=== PATIENT | female | born 1980 | race Caucasian/White ===

== ENCOUNTER 2016-10-05 22:53 | Emergency (ER) | payer BC ==
[~2016-10-05] VITALS: Ht 157.5 cm; Wt 87.0 kg
[~2016-10-05 22:53] MED LIST: ALBU1AER INH; BENZ100 PO
[2016-10-05 22:59] VITALS: BP 118/82; PULSE 97; RESP 16; TEMP 98.6; O2SAT 98
[2016-10-05] MEDS ORDERED: SODIUM CHLOR 0.9% 1000 ML INJ 1,000 ML IV SCH (23:26)
[2016-10-05] MEDS ORDERED: ONDANSETRON HCL 4 MG/2 ML VIAL IVP ONE (23:30)
[2016-10-05] MEDS ORDERED: FAMOTIDINE 20 MG/2 ML VIAL IV PUSH ONE (23:30)
--- NOTE | 2016-10-05 23:49 | PD ---
HPI Chief Complaint: GI Complaint Time Seen by Provider: 23:09 Travel History International Travel<30 days: No Contact w/Intl Traveler<30days: No Traveled to known affect area: No History of Present Illness HPI Patient is a 36-year-old female who comes in complaining of nausea and vomiting for the past week. She says she feels nauseous all the time and has been vomiting several times each day. She says she was able to eat some rice today as well as some broth, but eventually did vomit. She says she has some epigastric pain. She also has noticed some black stool. She says the stools formed, not diarrhea. She did have 2 kids at home that were sick earlier in the week, but they're symptoms only lasted a day. She denies fever or chills. She says her skin is very dry and she feels dehydrated. She says her urine feels very warm and has been dark, but she denies any dysuria. She says she has had both of her fallopian tubes removed due to ectopic pregnancies in the past and she does not think she could be . She has been taking Zofran without much help. PFSH Past Medical History Hx Anticoagulant Therapy: No Atrial Fibrillation: Yes (HX?) Blood Disorders: No Anxiety: Yes Depression: No Cancer: No Cardiovascular Problems: Yes (HX A FIB) Chemotherapy: No Cerebrovascular Accident: No Diabetes: No Diminished Hearing: No Endocrine: No Genitourinary: No Immune Disorder: No Musculoskeletal: No Neurologic: No Psychiatric: No Reproductive: Yes (INFERTILITY ISSUES) Respiratory: No Immunizations Current: Yes ?: Unknown : 5 Para: 2 Miscarriage: 2 : 1 Tubal Ligation: Yes Past Surgical History Section: Yes (X2) Genitourinary Surgery: Yes (REMOVED BILAT FALLOPIAN TUBES) Hysterectomy: No Other Surgery: Yes Social History Alcohol Use: Yes (3-4 drinks/wk) Tobacco Use: No Substance Use: No Allergies-Medications (Allergen,Severity, Reaction): Coded Allergies: Iodine (Verified Allergy, Severe, NAUSEA AND VOMITING, 11/16/15) Codeine (Verified Adverse Reaction, Intermediate, ITCHING, 11/16/15) Uncoded Allergies: SHELLFISH (Allergy, Severe, 11/15/05) Reported Meds & Prescriptions Reported Meds & Active Scripts Active Proair Hfa (Albuterol Sulfate) 8.5 Gm Aero 2 Puff INH Q4-6H * SHAKE WELL BEFORE USE * Tessalon Perles (Benzonatate) 100 Mg Cap 200 Mg PO Q8 PRN Review of Systems Except as stated in HPI: all other systems reviewed are Neg General / Constitutional: No: Fever, Chills HENT: No: Headaches, Lightheadedness Cardiovascular: No: Chest Pain or Discomfort Respiratory: No: Shortness of Breath Gastrointestinal: Positive: Nausea, Vomiting, No: Diarrhea Genitourinary: No: Dysuria Musculoskeletal: No: Weakness Skin: Positive Dryness, No Rash Neurologic: No: Weakness, Dizziness Physical Exam Narrative GENERAL: Awake and alert, in no acute distress. SKIN: Skin is very dry and flaky all over. No erythema or signs of infection. HEAD: Atraumatic. Normocephalic. EYES: Pupils equal and round. No scleral icterus. ENT: Mucous membranes pink and moist. NECK: Trachea midline. No JVD. CARDIOVASCULAR: Regular rate and rhythm. No murmur appreciated. RESPIRATORY: No accessory muscle use. Clear to auscultation. Breath sounds equal bilaterally. GASTROINTESTINAL: Abdomen soft, nondistended. Tenderness to palpation of the epigastric area. No rebound or guarding. MUSCULOSKELETAL: No obvious deformities. No clubbing. No cyanosis. No edema. NEUROLOGICAL: Awake and alert. No obvious cranial nerve deficits. Motor grossly within normal limits. Normal speech. PSYCHIATRIC: Appropriate mood and affect; insight and judgment normal. Data Data Last Documented VS Vital Signs Date Time Temp Pulse Resp B/P Pulse Ox O2 Delivery O2 Flow Rate FiO2 10/05/16 22:59 98.6 97 16 118/82 98 Orders Complete Blood Count With Diff (10/05/16 23:26) Basic Metabolic Panel (Bmp) (10/05/16 23:26) Hepatic Functional Panel (10/05/16 23:26) Lipase (10/05/16 23:26) Urinalysis - C+S If Indicated (10/05/16 23:26) Ed Urine Pregnancytest Poc (10/05/16 23:26) Ondansetron Inj (Zofran Inj) (10/05/16 23:30) Sodium Chlor 0.9% 1000 Ml Inj (Ns 1000 M (10/05/16 23:26) Famotidine Inj (Pepcid Inj) (10/05/16 23:30) [facility] Medical Decision Making Medical Screen Exam Complete: Yes Emergency Medical Condition: Yes Medical Record Reviewed: Yes Differential Diagnosis Gastritis versus gastroparesis versus gastroenteritis versus pancreatitis versus colitis Narrative Course Patient is a 36-year-old female comes in complaining of vomiting. Exam shows very dry skin, epigastric tenderness on palpation. IV established, labs sent. Patient given IV famotidine, Zofran, IV fluids. Patient signed out to Dr. Augustin to follow up labs and disposition appropriately. [facility] Point of Care Internal Pos. & Neg. Controls: Passed Fecal Specimen Occult Blood: Negative Nory Epps MD Oct 05, 2016 23:49
[2016-10-06] MEDS ORDERED: NO MEDS (00:22)
[2016-10-06 00:23] LABS: AUTOMATED NEUTROPHIL # 2.4 TH/MM3 (1.8-7.7); BASOPHIL % 0.7 % (0.0-2.0); EOSINOPHIL # 0.2 TH/MM3 (0-0.4); EOSINOPHIL % 3.3 % (0.0-4.0); HEMATOCRIT 37.1 % (35.0-46.0); HEMO FLAGS DIFF FINAL; LYMPH % 30.1 % (9.0-44.0); LYMPHOCYTE # 1.4 TH/MM3 (1.0-4.8); MEAN CELL VOLUME 94.4 FL (80.0-100.0); MEAN CORPUSCULAR HEMOGLOBIN 32.1 PG (27.0-34.0); MONO % 12.3 % (0.0-8.0); NEUT % 53.6 % (16.0-70.0); PLATELET COUNT 186 TH/MM3 (150-450); RED BLOOD COUNT 3.93 MIL/MM3 (4.00-5.30); RED CELL DISTRIBUTION WIDTH 12.3 % (11.6-17.2); WHITE BLOOD COUNT 4.6 TH/MM3 (4.0-11.0)
--- NOTE | 2016-10-06 00:23 | PD ---
Physical Exam Date Seen by Provider: Oct 06, 2016 Time Seen by Provider: 00:22 Narrative Accepted in transfer of care from Dr. Epps GENERAL: Well-developed well-nourished female in no acute distress no respiratory distress GASTROINTESTINAL: Abdomen soft, non-tender, nondistended. . Data Data Last Documented VS Vital Signs Date Time Temp Pulse Resp B/P Pulse Ox O2 Delivery O2 Flow Rate FiO2 10/05/16 22:59 98.6 97 16 118/82 98 Orders Complete Blood Count With Diff (10/05/16 23:26) Basic Metabolic Panel (Bmp) (10/05/16 23:26) Hepatic Functional Panel (10/05/16 23:26) Lipase (10/05/16 23:26) Urinalysis - C+S If Indicated (10/05/16 23:26) Ed Urine Pregnancytest Poc (10/05/16 23:26) Ondansetron Inj (Zofran Inj) (10/05/16 23:30) Sodium Chlor 0.9% 1000 Ml Inj (Ns 1000 M (10/05/16 23:26) Famotidine Inj (Pepcid Inj) (10/05/16 23:30) Bedside Glucose YOSEPH.AC&HS (10/05/16 23:49) Urine Culture (10/06/16 00:30) Promethazine Inj (Phenergan Inj) (10/06/16 01:30) Sodium Chlor 0.9% 1000 Ml Inj (Ns 1000 M (10/06/16 01:30) Ceftriaxone Inj (Rocephin Inj) (10/06/16 01:30) Ct Abd/Pel W/O Iv Contrast (10/06/16 ) Labs Laboratory Tests Test 10/06/16 10/06/16 00:00 00:30 White Blood Count 4.6 TH/MM3 Red Blood Count 3.93 MIL/MM3 Hemoglobin 12.6 GM/DL Hematocrit 37.1 % Mean Corpuscular Volume 94.4 FL Mean Corpuscular Hemoglobin 32.1 PG Mean Corpuscular Hemoglobin 34.0 % Concent Red Cell Distribution Width 12.3 % Platelet Count 186 TH/MM3 Mean Platelet Volume 8.0 FL Neutrophils (%) (Auto) 53.6 % Lymphocytes (%) (Auto) 30.1 % Monocytes (%) (Auto) 12.3 % Eosinophils (%) (Auto) 3.3 % Basophils (%) (Auto) 0.7 % Neutrophils # (Auto) 2.4 TH/MM3 Lymphocytes # (Auto) 1.4 TH/MM3 Monocytes # (Auto) 0.6 TH/MM3 Eosinophils # (Auto) 0.2 TH/MM3 Basophils # (Auto) 0.0 TH/MM3 CBC Comment DIFF FINAL Differential Comment Sodium Level 143 MEQ/L Potassium Level 3.6 MEQ/L Chloride Level 109 MEQ/L Carbon Dioxide Level 26.4 MEQ/L Anion Gap 8 MEQ/L Blood Urea Nitrogen 11 MG/DL Creatinine 0.68 MG/DL Estimat Glomerular Filtration 98 ML/MIN Rate Random Glucose 113 MG/DL Calcium Level 8.1 MG/DL Total Bilirubin 1.3 MG/DL Direct Bilirubin 0.2 MG/DL Indirect Bilirubin 1.1 MG/DL Aspartate Amino Transf 13 U/L (AST/SGOT) Alanine Aminotransferase 18 U/L (ALT/SGPT) Alkaline Phosphatase 63 U/L Total Protein 6.5 GM/DL Albumin 3.3 GM/DL Lipase 99 U/L Urine Color EULOGIO Urine Turbidity CLEAR Urine pH 6.0 Urine Specific Chandler 1.033 Urine Protein TRACE mg/dL Urine Glucose (UA) NEG mg/dL Urine Ketones NEG mg/dL Urine Occult Blood NEG Urine Nitrite NEG Urine Bilirubin NEG Urine Leukocyte Esterase TRACE Urine RBC 0-3 /hpf Urine WBC 6-8 /hpf Urine Squamous Epithelial > 8 /hpf Cells Urine Bacteria MOD /hpf Microscopic Urinalysis Comment CULTURE INDICATED MDM Medical Record Reviewed: Yes Supervised Visit with SUZETTE: No Interpretation(s) CBC & BMP Diagram 10/06/16 00:00 Last Impressions Abdomen/Pelvis CT 10/06/16 0000 Signed Impressions: Service Date/Time: Thursday, October 06, 2016 02:32 - CONCLUSION: 1. No evidence of acute abdominal or pelvic process. No masses are identified. Gino Pompa MD Differential Diagnosis Please refer to Dr. Mcarthur's dictation Narrative Course Accepted in transfer of care from Dr. Mcarthur for follow-up of pending diagnostics response to medications/fluids and patient disposition Patient identified to have abnormal urinalysis with moderate bacteria culture indicated Patient given additional IV fluids and ongoing nausea vomiting and first dose of antibiotic Rocephin 1 g IV piggyback; [id number] hCG negative; patient continues to complain of abdominal pain CT noncontrast ordered CT abdomen and pelvis reveals no acute abnormality Patient stable for outpatient management Diagnosis Primary Impression: Vomiting Qualified Code: R11.2 - Non-intractable vomiting with nausea, unspecified vomiting type Additional Impression: UTI (urinary tract infection) Qualified Code: N30.00 - Acute cystitis without hematuria Referrals: Primary Care Physician call for appointment Patient Instructions: General Instructions Additional Instruction: Increase fluid hydration Follow-up with primary care provider Complete course of antibiotic as prescribed Return to the emergency department for any concerns or change in condition Use medication as prescribed as needed for nausea or vomiting take acetaminophen as needed for fever 100.4F or greater Med/Other Pt SpecificInfo: Prescription(s) given Scripts Sulfamethoxazole-Trimethoprim (Bactrim DS)800-160 Mg Tab1 Tab PO BID #14 TAB Ref 0 Prov:Griselda Augustin MD 10/06/16 Promethazine Supp (Phenergan Supp)25 Mg Supp25 Mg RECTAL Q6H PRN (NAUSEA OR VOMITING) #6 SUPP Ref 0 Prov:Griselda Augustin MD 10/06/16 Ondansetron Odt (Zofran Odt)4 Mg Tab4 Mg SL Q6HR PRN (Nausea/Vomiting) #10 TAB Ref 0 Prov:Griselda Augustin MD 10/06/16 Disposition: 01 DISCHARGE HOME Condition: Stable Griselda Augustin MD Oct 06, 2016 00:23
[2016-10-06 00:32] LABS: POTASSIUM 3.6 MEQ/L (3.5-5.1)
[2016-10-06 00:36] LABS: BICARBONATE 26.4 MEQ/L (21.0-32.0)
[2016-10-06 00:42] LABS: TOTAL BILIRUBIN ADULT 1.3 MG/DL (0.2-1.0)
[2016-10-06 00:44] LABS: INDIRECT BILIRUBIN 1.1 MG/DL (0.0-0.8)
[2016-10-06 01:17] LABS: BLOOD, URINE NEG (NEG); GLUCOSE,URINE NEG (NEG); KETONE, URINE NEG (NEG); NITRITE,URINE NEG (NEG)
[2016-10-06 01:22] LABS: URINE COLOR AMBER (YELLW/STRAW)
[2016-10-06 01:23] LABS: BACTERIA, URINE MOD /hpf; COMMENT (UR) CULTURE INDICATED; CULTURE IF INDICATED CULTURE INDICATED; RBC, URINE 0-3 /hpf (0-3); SQUAMOUS EPITHELIAL CELL URINE > 8 /hpf (0-5)
[2016-10-06] MEDS ORDERED: cefTRIAXone INJ 1,000 MG in SODIUM CHLORIDE 0.9% INJ 100 ML IV ONE (01:30)
[2016-10-06] MEDS ORDERED: SODIUM CHLOR 0.9% 1000 ML INJ 1,000 ML IV ONE (01:30)
[2016-10-06] MEDS ORDERED: PROMETHAZINE INJ 25 MG/ML VIAL IM ONE (01:30)
--- NOTE | 2016-10-06 02:56 | RADHPO ---
EXAM DATE/TIME: 10/06/2016 02:32 [facility] COMPARISON: MRI LUMBAR SPINE W & W/O CONTRAST, June 09, 2013, 13:41. INDICATIONS : Epigastric pain with nausea and vomiting. ORAL CONTRAST: No oral contrast ingested. RADIATION DOSE: 22.99 CTDIvol (mGy) MEDICAL HISTORY : A-fib. SURGICAL HISTORY : Fusion, lumbar. Tubal ligation. ENCOUNTER: Initial ACUITY: 1 week PAIN SCALE: 6/10 LOCATION: Abdomen. TECHNIQUE: Volumetric scanning of the abdomen and pelvis was performed. Using automated exposure control and ad justment of the mA and/or kV according to patient size, radiation dose was kept as low as reasonably achievable to obtain optimal diagnostic quality images. FINDINGS: Examination of the lung bases demonstrates no abnormality. No pleural fluid is identified. No pulmona ry nodules are present. The gallbladder and pancreas are unremarkable. No intrahepatic or extrahepati c ductal dilatation is seen. The adrenal glands and kidneys appear normal bilaterally. No hydronephro sis or mass lesions are identified. No abnormally enlarged lymph nodes are identified. Examination of the right lower quadrant demonstrates no abnormality. The appendix is identified and appears normal. Examination of the pelvis demonstrates no evidence of free fluid or pelvic mass. No abnormally enlarg ed inguinal or retroperitoneal lymph nodes are present. The bladder is unremarkable. There is grade 4 spondylolisthesis of S1 on S2 CONCLUSION: 1. No evidence of acute abdominal or pelvic process. No masses are identified. Gino Pompa MD on October 06, 2016 at 2:51 Board Certified Radiologist. This report was verified electronically.
[2016-10-06] MEDS ORDERED: BACT800T5 PO (03:23)
[2016-10-06] MEDS ORDERED: PROM1SUP7 RECTAL (03:23)
[2016-10-06] MEDS ORDERED: ZOFR4TAB3 SL (03:23)
[2016-10-06 03:50] VITALS: BP 101/59; TEMP 99.1
== END 2016-10-06 03:52 | disposition home or self-care (01) ==
LOC: PHED 22:53
DX: R11.2 Nausea with vomiting, unspecified (principal); N30.00 Acute cystitis without hematuria; B96.89 Other specified bacterial agents as the cause of diseases classified elsewhere
CPT/HCPCS: 74176; 80048; 80076; 81001; 83690; 84703; 85025; 87086; 96361; 96365; 96372; 96375; 99284; J0696; J2405; J2550; J7030

== ENCOUNTER 2016-10-16 14:37 | Emergency (ER) | payer BC ==
[~2016-10-16] VITALS: Ht 157.5 cm; Wt 55.5 kg
[~2016-10-16 14:37] MED LIST changes: -ALBU1AER INH; +BACT800T5 PO; -BENZ100 PO; +PROM1SUP7 RECTAL; +ZOFR4TAB3 SL
[2016-10-16 14:47] VITALS: BP 133/86; PULSE 95; RESP 16; TEMP 97.7; O2SAT 100
[2016-10-16 15:04] LABS: BLOOD, URINE LARGE (NEG); GLUCOSE,URINE NEG (NEG); KETONE, URINE NEG (NEG); NITRITE,URINE NEG (NEG); PH, URINE 5.5 (5.0-8.5)
[2016-10-16 15:12] LABS: METHOD OF COLLECTION CLEAN CATCH; URINE COLOR YELLOW (YELLW/STRAW)
[2016-10-16 15:13] LABS: BACTERIA, URINE MOD /hpf; COMMENT (UR) CULTURE INDICATED; CULTURE IF INDICATED CULTURE INDICATED; SQUAMOUS EPITHELIAL CELL URINE > 8 /hpf (0-5)
[2016-10-16] MEDS ORDERED: METR-1 PO (15:43)
--- NOTE | 2016-10-16 15:44 | PD ---
HPI Chief Complaint: GI Complaint Time Seen by Provider: 15:18 Travel History International Travel<30 days: No Contact w/Intl Traveler<30days: No Traveled to known affect area: No History of Present Illness HPI The patient is a 36-year-old female who presents emergency department for diarrhea. The patient states she was diagnosed with a urinary tract infection 2 weeks ago and treated with Bactrim. The patient took approximately 6 out of 7 days of her antibiotics. The patient then developed diarrhea. The patient notes a 3 to four-day history of diarrhea which she describes as loose, watery, and yellow. The patient states she has approximate 4 episodes of diarrhea per day, however, states she could have more episodes during the day but holds it. The patient notes intermittent abdominal cramping, but denies any abdominal pain, nausea, or vomiting. The patient denies any history of clostridium difficile. The patient does take care of a foster child who has diarrhea, but is unsure if the patient has any history of C. difficile. The patient denies recent hospitalizations, surgeries, or foreign travel except to the [facility]. The patient denies any fever, chills, or sweats. The patient denies any known history of IBD or IBS. PFSH Past Medical History Hx Anticoagulant Therapy: No Atrial Fibrillation: Yes (HX?) Blood Disorders: No Anxiety: Yes Depression: No Cancer: No Cardiovascular Problems: Yes (HX A FIB) Chemotherapy: No Cerebrovascular Accident: No Diabetes: No Diminished Hearing: No Endocrine: No Gastrointestinal Disorders: No Genitourinary: No Immune Disorder: No Implanted Vascular Access Dvce: No Musculoskeletal: No Neurologic: No Psychiatric: No Reproductive: Yes (INFERTILITY ISSUES) Respiratory: No Immunizations Current: No Influenza Vaccination: No ?: Not LMP: : 2 Para: 2 Miscarriage: 2 : 1 Tubal Ligation: Yes Past Surgical History Section: Yes (X2) Genitourinary Surgery: Yes (REMOVED BILAT FALLOPIAN TUBES) Hysterectomy: No Neurologic Surgery: Yes (SPINAL FUSION L-5 THRU S-4) Other Surgery: Yes Social History Tobacco Use: No Substance Use: No Allergies-Medications (Allergen,Severity, Reaction): Coded Allergies: Iodine (Verified Allergy, Severe, NAUSEA AND VOMITING, 10/16/16) Codeine (Verified Adverse Reaction, Intermediate, ITCHING, 10/16/16) Uncoded Allergies: SHELLFISH (Allergy, Severe, 11/15/05) Reported Meds & Prescriptions Reported Meds & Active Scripts Active Zofran Odt (Ondansetron Odt) 4 Mg Tab 4 Mg SL Q6HR PRN Review of Systems Except as stated in HPI: all other systems reviewed are Neg General / Constitutional: No: Fever Cardiovascular: No: Chest Pain or Discomfort Respiratory: No: Shortness of Breath Gastrointestinal: Positive: Diarrhea, No: Nausea, Vomiting, Abdominal Pain Genitourinary: No: Dysuria Musculoskeletal: No: Myalgias, Arthralgias Skin: No Rash Physical Exam Narrative GENERAL: Awake, alert, nontoxic-appearing 36-year-old female who appears her stated age is in no acute respiratory distress. SKIN: Warm and dry. HEAD: Atraumatic. Normocephalic. EYES: No injection or drainage. ENT: No nasal bleeding or discharge. Mucous membranes pink and moist. NECK: Trachea midline. No JVD. GASTROINTESTINAL: Abdomen soft, non-tender, nondistended. No rebound tenderness. MUSCULOSKELETAL: No obvious deformities. No clubbing. No cyanosis. No edema. NEUROLOGICAL: Awake and alert. No obvious cranial nerve deficits. Motor grossly within normal limits. Normal speech. PSYCHIATRIC: Appropriate mood and affect; insight and judgment normal. Data Data Last Documented VS Vital Signs Date Time Temp Pulse Resp B/P Pulse Ox O2 Delivery O2 Flow Rate FiO2 10/16/16 14:47 97.7 95 16 133/86 100 Orders Urinalysis - C+S If Indicated (10/16/16 14:53) Ed Urine Pregnancytest Poc (10/16/16 14:53) Urine Culture (10/16/16 14:55) Labs Laboratory Tests Test 10/16/16 14:55 Urine Collection Type CLEAN CATCH Urine Color YELLOW Urine Turbidity SLIGHT Urine pH 5.5 Urine Specific Wilder 1.028 Urine Protein TRACE mg/dL Urine Glucose (UA) NEG mg/dL Urine Ketones NEG mg/dL Urine Occult Blood LARGE Urine Nitrite NEG Urine Bilirubin NEG Urine Leukocyte Esterase NEG Urine RBC 20-24 /hpf Urine WBC 3-5 /hpf Urine Squamous Epithelial > 8 /hpf Cells Urine Bacteria MOD /hpf Microscopic Urinalysis Comment CULTURE INDICATED Urine Collection Time 14:55 [facility] Medical Decision Making Medical Screen Exam Complete: Yes Emergency Medical Condition: Yes Medical Record Reviewed: Yes Differential Diagnosis Differential diagnosis includes inflammatory diarrhea, infectious diarrhea, dehydration, C. difficile, medication side effect, enteritis, colitis, IBS, IBD. Narrative Course The patient states she has had a colonoscopy in the past, has no history of IBS or IBD. Patient has no fever and his been able to eat and drink without difficulty. I had a discussion with the patient regarding the possibility of C. difficile after taking antibiotics for recent UTI. Had a discussion regarding sending the stool for C. difficile and possible stool studies. However, patient states she had diarrhea just prior to arrival and does not want to wait for the diarrhea sample to be sent. After discussion with the patient it was agreed we would treat for possible C. difficile with Flagyl 3 times a day for 14 days, she is advised to follow-up with her primary physician if symptoms worsen or progress, drink plenty fluids to stay hydrated, and monitor for increasing symptoms or abdominal pain. Diagnosis Primary Impression: Diarrhea Qualified Code: R19.7 - Diarrhea, unspecified type Patient Instructions: General Instructions Additional Instructions: Flagyl as directed. No drinking alcohol while on Flagyl. Plenty of fluids to stay hydrated. Return if symptoms worsen or you develop severe abdominal pain. Follow-up with your primary physician. Med/Other Pt SpecificInfo: Prescription(s) given Scripts Metronidazole (Flagyl)500 Mg Nwh049 Mg PO TID 14 Days Ref 0 Prov:Logan Benítez MD 10/16/16 Disposition: 01 DISCHARGE HOME Condition: Stable Logan Benítez MD Oct 16, 2016 15:44
[2016-10-16 15:53] VITALS: BP 130/80; PULSE 90; RESP 16; O2SAT 100
== END 2016-10-16 15:54 | disposition home or self-care (01) ==
LOC: PHED 14:37
DX: R19.7 Diarrhea, unspecified (principal)
CPT/HCPCS: 81001; 84703; 87086; 99284

== ENCOUNTER 2017-03-09 05:19 | Emergency (ER) | payer BC ==
[~2017-03-09] VITALS: Ht 157.5 cm; Wt 83.9 kg
[~2017-03-09 05:19] MED LIST changes: -BACT800T5 PO; +METR-1 PO; -PROM1SUP7 RECTAL
[2017-03-09] MEDS ORDERED: FLUO-1 PO (05:34)
[2017-03-09 05:37] VITALS: BP 138/81; PULSE 105; RESP 18; TEMP 98.2; O2SAT 98
[2017-03-09 06:01] LABS: BLOOD, URINE NEG (NEG); GLUCOSE,URINE NEG (NEG); KETONE, URINE NEG (NEG); NITRITE,URINE NEG (NEG)
[2017-03-09 06:11] LABS: URINE COLOR YELLOW (YELLW/STRAW)
[2017-03-09 06:13] LABS: BACTERIA, URINE OCC /hpf; RBC, URINE 0-2 /hpf (0-3); SQUAMOUS EPITHELIAL CELL URINE > 8 /hpf (0-5)
[2017-03-09 06:14] LABS: COMMENT (UR) CULT NOT INDICATED; CULTURE IF INDICATED CULT NOT INDICATED
[2017-03-09] MEDS ORDERED: SODIUM CHLOR 0.9% 1000 ML INJ 1,000 ML IV SCH (07:08)
[2017-03-09 07:15] VITALS: BP 127/68; PULSE 88; RESP 16; O2SAT 98
[2017-03-09] MEDS ORDERED: MORPHINE SULFATE 4 MG/ML INJ IV PUSH ONE (07:15)
[2017-03-09] MEDS ORDERED: ONDANSETRON HCL 4 MG/2 ML VIAL IVP ONE (07:15)
[2017-03-09] MEDS ORDERED: SODIUM CHLORIDE 0.9% FLUSH 10 ML FLUSH IV FLUSH PRN (07:15)
--- NOTE | 2017-03-09 07:20 | PD ---
HPI Chief Complaint: Abdominal Pain Time Seen by Provider: 06:36 Travel History International Travel<30 days: No Contact w/Intl Traveler<30days: No Traveled to known affect area: No History of Present Illness HPI The patient is a 36-year-old female who complains of bilateral upper quadrant and bilateral lower quadrant abdominal pain for 3 days. The patient may have a history of irritable bowel syndrome. She states she does have a history of alternating diarrhea and constipation in the past. She did have diarrhea 4 days ago but has had normal stool since despite her abdominal pain. She denies any fever. She has had nausea and vomiting which she describes as mostly dry heaves. She denies vomiting any blood. Her only surgeries consisted of bilateral tubal pregnancies and both tubes have been removed. She still has her appendix and gallbladder. She claims a pain level of 8/10 which is an aching type of pain in both the upper and lower quadrants. PFSH Past Medical History Hx Anticoagulant Therapy: No Atrial Fibrillation: Yes Blood Disorders: No Anxiety: Yes Depression: No Cancer: No Cardiovascular Problems: Yes (HX A FIB) Chemotherapy: No Cerebrovascular Accident: No Diabetes: No Diminished Hearing: No Endocrine: No Gastrointestinal Disorders: No Genitourinary: No Immune Disorder: No Implanted Vascular Access Dvce: No Musculoskeletal: No Neurologic: No Psychiatric: No Reproductive: Yes (INFERTILITY ISSUES) Respiratory: No Immunizations Current: No Tetanus Vaccination: < 5 Years Influenza Vaccination: No ?: Not LMP: 02/16/17 : 5 Para: 2 Miscarriage: 2 : 1 Tubal Ligation: Yes Past Surgical History Section: Yes (X2) Genitourinary Surgery: Yes (REMOVED BILAT FALLOPIAN TUBES) Hysterectomy: No Neurologic Surgery: Yes (SPINAL FUSION L-5 THRU S-4) Other Surgery: Yes Social History Alcohol Use: Yes (SOCIALLY) Tobacco Use: No Substance Use: No (DENIES) Allergies-Medications (Allergen,Severity, Reaction): Coded Allergies: Iodine (Verified Allergy, Severe, NAUSEA AND VOMITING, 03/09/17) Codeine (Verified Adverse Reaction, Intermediate, ITCHING, 03/09/17) Uncoded Allergies: SHELLFISH (Allergy, Severe, 11/15/05) Reported Meds & Prescriptions Reported Meds & Active Scripts Active Reported Prozac (Fluoxetine HCl) 10 Mg Cap 10 Mg PO DAILY Review of Systems Except as stated in HPI: all other systems reviewed are Neg Physical Exam Narrative GENERAL: The patient is alert, oriented 3 in moderate apparent distress with her abdominal pain. Her vital signs show blood pressure 138/81 and heart rate of 105 but otherwise normal. SKIN: Focused skin assessment warm/dry. HEAD: Atraumatic. Normocephalic. EYES: Pupils equal and round. No scleral icterus. No injection or drainage. ENT: No nasal bleeding or discharge. Mucous membranes pink and moist. NECK: Trachea midline. No JVD. CARDIOVASCULAR: Regular rate and rhythm. No murmur appreciated. RESPIRATORY: No accessory muscle use. Clear to auscultation. Breath sounds equal bilaterally. GASTROINTESTINAL: Abdomen soft, with tenderness to direct palpation in the bilateral upper quadrants and bilateral lower quadrants, nondistended. Hepatic and splenic margins not palpable. No guarding or rebound is present. Disla's sign is negative. MUSCULOSKELETAL: No obvious deformities. No clubbing. No cyanosis. No edema. NEUROLOGICAL: Awake and alert. No obvious cranial nerve deficits. Motor grossly within normal limits. Normal speech. PSYCHIATRIC: Appropriate mood and affect; insight and judgment normal. Data Data Last Documented VS Vital Signs Date Time Temp Pulse Resp B/P Pulse Ox O2 Delivery O2 Flow Rate FiO2 03/09/17 05:37 98.2 105 18 138/81 98 Orders Urinalysis - C+S If Indicated (03/09/17 05:46) Complete Blood Count With Diff (03/09/17 07:08) Comprehensive Metabolic Panel (03/09/17 07:08) Lipase (03/09/17 07:08) Iv Access Insert/Monitor (03/09/17 07:08) Ecg Monitoring (03/09/17 07:08) Oximetry (03/09/17 07:08) Morphine Inj (Morphine Inj) (03/09/17 07:15) Ondansetron Inj (Zofran Inj) (03/09/17 07:15) Sodium Chlor 0.9% 1000 Ml Inj (Ns 1000 M (03/09/17 07:08) Sodium Chloride 0.9% Flush (Ns Flush) (03/09/17 07:15) Ct Abd/Pel W/O Iv Contrast (03/09/17 07:08) Labs Laboratory Tests Test 03/09/17 05:45 Urine Color YELLOW Urine Turbidity CLEAR Urine pH 6.0 Urine Specific Muse 1.025 Urine Protein NEG mg/dL Urine Glucose (UA) NEG mg/dL Urine Ketones NEG mg/dL Urine Occult Blood NEG Urine Nitrite NEG Urine Bilirubin NEG Urine Leukocyte Esterase NEG Urine RBC 0-2 /hpf Urine WBC 3-5 /hpf Urine Squamous Epithelial > 8 /hpf Cells Urine Bacteria OCC /hpf Microscopic Urinalysis Comment CULT NOT INDICATED MDM Medical Decision Making Medical Screen Exam Complete: Yes Emergency Medical Condition: Yes Medical Record Reviewed: Yes Differential Diagnosis Pyelonephritis, acute cholecystitis, pancreatitis, colitis, inflammatory bowel disease, Narrative Course It is now 0720 and the patient is transferred to Dr. Epps. Trent Layton MD Mar 09, 2017 07:20
[2017-03-09 07:34] LABS: AUTOMATED NEUTROPHIL # 3.8 TH/MM3 (1.8-7.7); BASOPHIL % 0.4 % (0.0-2.0); EOSINOPHIL # 0.1 TH/MM3 (0-0.4); EOSINOPHIL % 1.8 % (0.0-4.0); HEMATOCRIT 36.3 % (35.0-46.0); HEMO FLAGS DIFF FINAL; LYMPH % 23.2 % (9.0-44.0); LYMPHOCYTE # 1.4 TH/MM3 (1.0-4.8); MEAN CELL VOLUME 93.8 FL (80.0-100.0); MEAN CORPUSCULAR HGB CONC 35.1 % (32.0-36.0); MONO % 12.2 % (0.0-8.0); NEUT % 62.4 % (16.0-70.0); PLATELET COUNT 191 TH/MM3 (150-450); RED BLOOD COUNT 3.86 MIL/MM3 (4.00-5.30); RED CELL DISTRIBUTION WIDTH 12.1 % (11.6-17.2)
[2017-03-09 07:40] VITALS: BP 106/73; PULSE 87; RESP 16; O2SAT 98
[2017-03-09 07:44] LABS: CHLORIDE 108 MEQ/L (98-107); POTASSIUM 3.7 MEQ/L (3.5-5.1); SODIUM (NA) 140 MEQ/L (136-145)
[2017-03-09 07:48] LABS: ANION GAP 8 MEQ/L (5-15); BICARBONATE 23.7 MEQ/L (21.0-32.0); BLOOD UREA NITROGEN 8 MG/DL (7-18)
--- NOTE | 2017-03-09 07:48 | RADRPT ---
EXAM DATE/TIME: 03/09/2017 07:23 [facility] COMPARISON: CT ABDOMEN & PELVIS W/O CONTRAST, October 06, 2016, 2:32. INDICATIONS : Upper abdominal pain that radiates to the left. ORAL CONTRAST: No oral contrast ingested. RADIATION DOSE: 22.46 CTDIvol (mGy) MEDICAL HISTORY : Afib SURGICAL HISTORY : Fillopian tubes removed. ENCOUNTER: Initial ACUITY: 3 days PAIN SCALE: 8/10 LOCATION: Bilateral upper quadrant abdomen TECHNIQUE: Volumetric scanning of the abdomen and pelvis was performed. Using automated exposure control and adjustment of the mA and/or kV according to patient size, radiation dose was kept as low as reasonably achievable to obtain optimal diagnostic quality images. DICOM format image data is av ailable electronically for review and comparison. FINDINGS: CT Abdomen: The liver, spleen, pancreas, kidneys, adrenals are unremarkable. There is no evidence for any appreciable pathological adenopathy, free fluid, or bowel obstruction. The splenic flexure of t he colon is abnormal demonstrates mild wall thickening and infiltration of the pericolonic fat plane not present at prior examination probably due to acute diverticulitis without abscess formation or pe rforation. There is no evidence for any stones in the kidneys or the course of the ureters on either side. There is no hydronephrosis. CT pelvis: There is no evidence for mass, abscess formation, or any significant adenopathy within the pelvis. CONCLUSION: Moderate degree of acute diverticulitis splenic flexure. KSangeetha Trujillo MD on March 09, 2017 at 7:43 Board Certified Radiologist. This report was verified electronically.
[2017-03-09 07:51] LABS: ALT (GPT) 21 U/L (10-53); AST (GOT) 18 U/L (15-37); GLOMERULAR FILTRATION RATE 104 ML/MIN (>89)
[2017-03-09 07:53] LABS: TOTAL BILIRUBIN ADULT 1.7 MG/DL (0.2-1.0)
[2017-03-09 07:54] LABS: ALKALINE PHOSPHATASE 60 U/L (45-117)
[2017-03-09] MEDS ORDERED: CIPROFLOXACIN 400 MG PREMIX 200 ML IV ONE (08:00)
[2017-03-09] MEDS ORDERED: metroNIDAZOLE 500 MG INJ 100 ML IV ONE (08:00)
[2017-03-09] MEDS ORDERED: CIPR-9 PO (08:06)
[2017-03-09] MEDS ORDERED: METR-1 PO (08:06)
[2017-03-09] MEDS ORDERED: HYDR-3533 PO (08:06)
--- NOTE | 2017-03-09 08:06 | PD ---
Physical Exam Narrative Patient signed out to me by Dr. Layton. Please see his documentation for complete details. Briefly, patient is a 36-year-old female comes in complaining of abdominal pain that started about 5 days ago. She says she had 3 days of diarrhea, but this has improved. She says the pain is in the upper abdomen and the left lower quadrant. She says she has not been eating much. She denies fever or chills. She denies dysuria or vaginal discharge. Data Data Last Documented VS Vital Signs Date Time Temp Pulse Resp B/P Pulse Ox O2 Delivery O2 Flow Rate FiO2 03/09/17 07:40 87 16 106/73 98 Room Air 03/09/17 05:37 98.2 Orders Urinalysis - C+S If Indicated (03/09/17 05:46) Complete Blood Count With Diff (03/09/17 07:08) Comprehensive Metabolic Panel (03/09/17 07:08) Lipase (03/09/17 07:08) Iv Access Insert/Monitor (03/09/17 07:08) Ecg Monitoring (03/09/17 07:08) Oximetry (03/09/17 07:08) Morphine Inj (Morphine Inj) (03/09/17 07:15) Ondansetron Inj (Zofran Inj) (03/09/17 07:15) Sodium Chlor 0.9% 1000 Ml Inj (Ns 1000 M (03/09/17 07:08) Sodium Chloride 0.9% Flush (Ns Flush) (03/09/17 07:15) Ct Abd/Pel W/O Iv Contrast (03/09/17 07:08) Ciprofloxacin 400 Mg Premix (Cipro 400 M (03/09/17 08:00) Metronidazole 500 Mg Inj (Flagyl 500 Mg (03/09/17 08:00) Labs Laboratory Tests Test 03/09/17 03/09/17 05:45 06:10 Urine Color YELLOW Urine Turbidity CLEAR Urine pH 6.0 Urine Specific [place] 1.025 Urine Protein NEG mg/dL Urine Glucose (UA) NEG mg/dL Urine Ketones NEG mg/dL Urine Occult Blood NEG Urine Nitrite NEG Urine Bilirubin NEG Urine Leukocyte Esterase NEG Urine RBC 0-2 /hpf Urine WBC 3-5 /hpf Urine Squamous Epithelial > 8 /hpf Cells Urine Bacteria OCC /hpf Microscopic Urinalysis Comment CULT NOT INDICATED White Blood Count 6.0 TH/MM3 Red Blood Count 3.86 MIL/MM3 Hemoglobin 12.7 GM/DL Hematocrit 36.3 % Mean Corpuscular Volume 93.8 FL Mean Corpuscular Hemoglobin 33.0 PG Mean Corpuscular Hemoglobin 35.1 % Concent Red Cell Distribution Width 12.1 % Platelet Count 191 TH/MM3 Mean Platelet Volume 8.4 FL Neutrophils (%) (Auto) 62.4 % Lymphocytes (%) (Auto) 23.2 % Monocytes (%) (Auto) 12.2 % Eosinophils (%) (Auto) 1.8 % Basophils (%) (Auto) 0.4 % Neutrophils # (Auto) 3.8 TH/MM3 Lymphocytes # (Auto) 1.4 TH/MM3 Monocytes # (Auto) 0.7 TH/MM3 Eosinophils # (Auto) 0.1 TH/MM3 Basophils # (Auto) 0.0 TH/MM3 CBC Comment DIFF FINAL Differential Comment Sodium Level 140 MEQ/L Potassium Level 3.7 MEQ/L Chloride Level 108 MEQ/L Carbon Dioxide Level 23.7 MEQ/L Anion Gap 8 MEQ/L Blood Urea Nitrogen 8 MG/DL Creatinine 0.65 MG/DL Estimat Glomerular Filtration 104 ML/MIN Rate Random Glucose 100 MG/DL Calcium Level 8.2 MG/DL Total Bilirubin 1.7 MG/DL Aspartate Amino Transf 18 U/L (AST/SGOT) Alanine Aminotransferase 21 U/L (ALT/SGPT) Alkaline Phosphatase 60 U/L Total Protein 6.9 GM/DL Albumin 3.5 GM/DL Lipase 101 U/L [facility] Supervised Visit with SUZETTE: No Narrative Course On reexamination, patient's abdomen is soft and nontender. She is resting comfortably. Labs show an elevated total bilirubin to 1.7. No other acute abnormalities. CT abdomen and pelvis shows diverticulitis. There is no evidence of issues with her gallbladder. Her right upper quadrant is nontender on palpation. Patient advised of her results. Given Flagyl and Cipro here. She'll be discharged with prescriptions for Flagyl, Cipro, pain medicine. She is advised to follow-up with gastroenterology. Advised follow-up with her primary care doctor. Advised to return to the emergency department as needed for any worsening symptoms. Diagnosis Primary Impression: Diverticulitis Qualified Code: K57.32 - Diverticulitis of large intestine without perforation or abscess without bleeding Referrals: Nicci Farmer MD call for appointment Patient Instructions: Diverticulitis (ED), General Instructions Additional Instruction: Follow-up with gastroenterology and her primary care doctor. Drink plenty of fluids. Take all of her antibiotics. Be careful not to drink alcohol while taking these antibiotics that you will become violently ill. Take pain medicine as needed. Return to the emergency department as needed for any worsening symptoms. Take the Diflucan once you have finished the antibiotics as needed for yeast infection. Scripts Fluconazole (Diflucan)150 Mg Pdn330 Mg PO ONCE #1 TAB Ref 0 Prov:Nory Epps MD 03/09/17 Hydrocodone-Acetaminophen (Lortab)5-325 Mg Tab1 Tab PO Q6H PRN (PAIN) #8 TAB Ref 0 Prov:Nory Epps MD 03/09/17 Ciprofloxacin (Cipro)500 Mg Iia218 Mg PO BID 7 Days Ref 0 Prov:Nory Epps MD 03/09/17 Metronidazole (Flagyl)500 Mg [id number] Mg PO TID 7 Days Ref 0 Prov:Nory Epps MD 03/09/17 Disposition: 01 DISCHARGE HOME Condition: Stable Nory Epps MD Mar 09, 2017 08:06
[2017-03-09] MEDS ORDERED: DIFL150T PO (08:19)
[2017-03-09] MEDS ORDERED: ONDANSETRON HCL 4 MG/2 ML VIAL IV PUSH ONE (09:15)
[2017-03-09 09:30] VITALS: BP 118/63; PULSE 71; RESP 16; O2SAT 100
[2017-03-09 10:48] VITALS: BP 102/55; PULSE 77; O2SAT 99
== END 2017-03-09 10:57 | disposition home or self-care (01) ==
LOC: PHED 05:19
DX: K57.32 Diverticulitis of large intestine without perforation or abscess without bleeding (principal); I48.91 Unspecified atrial fibrillation
CPT/HCPCS: 74176; 80053; 81001; 83690; 85025; 96361; 96365; 96367; 96375; 96376; 99285; J0744; J2270; J2405; J7030

== ENCOUNTER 2017-03-23 22:56 | Emergency (ER) | payer BC ==
[~2017-03-23] VITALS: Ht 157.5 cm; Wt 83.2 kg
[~2017-03-23 22:56] MED LIST changes: +CIPR-9 PO; +DIFL150T PO; +FLUO-1 PO; +HYDR-3533 PO; -ZOFR4TAB3 SL
[2017-03-23 22:58] VITALS: BP 128/74; PULSE 75; RESP 14; TEMP 97.3; O2SAT 100
[2017-03-23] MEDS ORDERED: SODIUM CHLOR 0.9% 1000 ML INJ 1,000 ML IV SCH (23:22)
[2017-03-23] MEDS ORDERED: ONDANSETRON HCL 4 MG/2 ML VIAL IVP ONE (23:30)
[2017-03-23] MEDS ORDERED: MORPHINE SULFATE 4 MG/ML INJ IV PUSH ONE (23:30)
[2017-03-23] MEDS ORDERED: SODIUM CHLORIDE 0.9% FLUSH 10 ML FLUSH IV FLUSH PRN (23:30)
--- NOTE | 2017-03-23 23:52 | PD ---
Physical Exam Date Seen by Provider: Mar 23, 2017 Time Seen by Provider: 23:51 Narrative accepted in transfer of care from Dr Blanco Data Data Last Documented VS Vital Signs Date Time Temp Pulse Resp B/P Pulse Ox O2 Delivery O2 Flow Rate FiO2 03/24/17 00:21 79 16 112/75 98 Room Air 03/23/17 22:58 97.3 Orders Complete Blood Count With Diff (03/23/17 23:22) Comprehensive Metabolic Panel (03/23/17 23:22) Lipase (03/23/17 23:22) Prothrombin Time / Inr (Pt) (03/23/17 23:22) Act Partial Throm Time (Ptt) (03/23/17 23:22) Urinalysis - C+S If Indicated (03/23/17 23:22) Iv Access Insert/Monitor (03/23/17 23:22) Ecg Monitoring (03/23/17 23:22) Oximetry (03/23/17 23:22) Morphine Inj (Morphine Inj) (03/23/17 23:30) Ondansetron Inj (Zofran Inj) (03/23/17 23:30) Sodium Chlor 0.9% 1000 Ml Inj (Ns 1000 M (03/23/17 23:22) Sodium Chloride 0.9% Flush (Ns Flush) (03/23/17 23:30) Electrocardiogram (03/23/17 23:22) Ed Urine Pregnancytest Poc (03/23/17 23:22) Ct Abd/Pel W Iv Contrast(Rout) (03/23/17 23:44) C Diff Toxin Pcr (03/23/17 23:57) Iohexol 350 Inj (Omnipaque 350 Inj) (03/24/17 00:01) Labs Laboratory Tests Test 03/23/17 23:55 White Blood Count 4.5 TH/MM3 Red Blood Count 3.95 MIL/MM3 Hemoglobin 12.9 GM/DL Hematocrit 38.2 % Mean Corpuscular Volume 96.7 FL Mean Corpuscular Hemoglobin 32.7 PG Mean Corpuscular Hemoglobin 33.8 % Concent Red Cell Distribution Width 12.6 % Platelet Count 194 TH/MM3 Mean Platelet Volume 7.9 FL Neutrophils (%) (Auto) 45.9 % Lymphocytes (%) (Auto) 38.0 % Monocytes (%) (Auto) 12.4 % Eosinophils (%) (Auto) 3.1 % Basophils (%) (Auto) 0.6 % Neutrophils # (Auto) 2.1 TH/MM3 Lymphocytes # (Auto) 1.7 TH/MM3 Monocytes # (Auto) 0.6 TH/MM3 Eosinophils # (Auto) 0.1 TH/MM3 Basophils # (Auto) 0.0 TH/MM3 CBC Comment DIFF FINAL Differential Comment Prothrombin Time 10.2 SEC Prothromb Time International 0.9 RATIO Ratio Activated Partial 28.5 SEC Thromboplast Time Urine Color YELLOW Urine Turbidity CLEAR Urine pH 5.5 Urine Specific [place] 1.030 Urine Protein NEG mg/dL Urine Glucose (UA) NEG mg/dL Urine Ketones TRACE mg/dL Urine Occult Blood SMALL Urine Nitrite NEG Urine Bilirubin NEG Urine Leukocyte Esterase NEG Urine RBC 4-9 /hpf Urine WBC 3-5 /hpf Urine Squamous Epithelial > 8 /hpf Cells Urine Bacteria OCC /hpf Microscopic Urinalysis Comment CULT NOT INDICATED Sodium Level 139 MEQ/L Potassium Level 3.4 MEQ/L Chloride Level 105 MEQ/L Carbon Dioxide Level 28.5 MEQ/L Anion Gap 6 MEQ/L Blood Urea Nitrogen 13 MG/DL Creatinine 0.86 MG/DL Estimat Glomerular Filtration 75 ML/MIN Rate Random Glucose 102 MG/DL Calcium Level 8.8 MG/DL Total Bilirubin 1.3 MG/DL Aspartate Amino Transf 21 U/L (AST/SGOT) Alanine Aminotransferase 26 U/L (ALT/SGPT) Alkaline Phosphatase 71 U/L Total Protein 7.1 GM/DL Albumin 3.6 GM/DL Lipase 127 U/L [facility] Medical Record Reviewed: Yes Supervised Visit with SUZETTE: No Interpretation(s) EKG: Normal sinus rhythm rate 72 elevation, injury pattern, ectopy, or acute abnormality CT ABD/PEL: CONCLUSION: 1. No evidence of acute abdominal or pelvic process. No masses are identified. 2. 2 cm right adnexal cyst Gino Pompa MD on March 24, 2017 at 0:22 Board Certified Radiologist. This report was verified electronically. CBC & BMP Diagram 03/23/17 23:55 Vital Signs Date Time Temp Pulse Resp B/P Pulse Ox O2 Delivery O2 Flow Rate FiO2 03/24/17 00:21 79 16 112/75 98 Room Air 03/24/17 00:19 16 03/24/17 00:03 100 Room Air 03/23/17 22:58 97.3 75 14 128/74 100 Differential Diagnosis accepted in transfer of care from Dr Blanco Narrative Course accepted in transfer of care from Dr Blanco Patient resting comfortably waiting on lab results and imaging results; patient voicing no concerns or complaints at this time; EKG sinus rhythm without acute injury pattern or ST elevation or ectopy; CT abdomen and pelvis reveals no acute abnormality per reading radiologist previous imaging inflammatory changes have resolved; CBC with automated differential values grossly within normal range; complete metabolic panel remarkable for potassium 3.4 and total bilirubin of 1.3 otherwise values are grossly within normal limits; urinalysis shows RBCs culture not indicated cervical and regulation studies and normal range Patient has been informed of all lab results in stable for outpatient management Diagnosis Primary Impression: Abdominal pain Qualified Code: R10.84 - Generalized abdominal pain Referrals: Primary Care Physician call for appointment Patient Instructions: Narcotic given in the ED, General Instructions Additional Instruction: Recommend following clear liquid diet for next 12-24 hours advance as tolerated to bland/Claudio diet and regular diet Follow-up with your primary care provider and your specialist as scheduled Return to the emergency department for any concerns or change condition Monitor temperature every 4 hours with thermometer take as needed acetaminophen/ Tylenol every 4-6 hours as needed for fever 100.4F or greater; may use ibuprofen/Advil/Motrin every 6-8 hours as needed for fever 100.4F or greater or for pain associated with inflammation as tolerated Scripts No Active Prescriptions or Reported Meds Disposition: 01 DISCHARGE HOME Condition: Stable (ERASED) Griselda Augustin MD Mar 23, 2017 23:51
[2017-03-24] MEDS ORDERED: IOHEXOL 350 MG/ML 10 ML VIAL (for RAD DIAG) IV ONE (00:01)
[2017-03-24 00:03] VITALS: O2SAT 100
[2017-03-24 00:05] LABS: BLOOD, URINE SMALL (NEG); GLUCOSE,URINE NEG (NEG); KETONE, URINE TRACE mg/dL (NEG); NITRITE,URINE NEG (NEG); PH, URINE 5.5 (5.0-8.5)
--- NOTE | 2017-03-24 00:05 | PD ---
HPI Chief Complaint: Abdominal Pain Time Seen by Provider: 23:50 Travel History International Travel<30 days: No Contact w/Intl Traveler<30days: No Traveled to known affect area: No History of Present Illness HPI 36-year-old female seen in our emergency department on 03/09/17 and diagnosed with diverticulitis, here for evaluation of abdominal pain. Patient was prescribed a seven-day course of both Cipro and Flagyl. She followed with colorectal surgeon Dr. Ordonez given her family history of colorectal cancer. Because she was having adverse side effects to Flagyl, this was discontinued. Patient reports that her symptoms improved after her 7 day course of Cipro. Yesterday the patient began experiencing abdominal pain which continued to today. She plans of sharp/crampy upper abdominal pain as well as lower abdominal discomfort. Pain is moderate to severe, constant, worse with movement and palpation. She denies fevers or chills. She became nauseous earlier today and had one episode of vomiting. Her bowel movements are loose, not diarrhea, darkish in coloration. She denies hematochezia. She has also noted a right external hemorrhoid that is causing her some discomfort. History of section and bilateral tubal ligation. No other abdominal surgeries. She denies urinary symptoms. No vaginal bleeding or discharge. PFSH Past Medical History Hx Anticoagulant Therapy: No Atrial Fibrillation: Yes Blood Disorders: No Anxiety: Yes Depression: No Cancer: No Cardiovascular Problems: Yes (HX A FIB) Chemotherapy: No Cerebrovascular Accident: No Diabetes: No Diminished Hearing: No Endocrine: No Gastrointestinal Disorders: No Genitourinary: No Immune Disorder: No Implanted Vascular Access Dvce: No Musculoskeletal: No Neurologic: No Psychiatric: No Reproductive: Yes (INFERTILITY ISSUES) Respiratory: No Immunizations Current: No Tetanus Vaccination: < 5 Years Influenza Vaccination: No ?: Not : 5 Para: 2 Miscarriage: 2 : 1 Tubal Ligation: Yes Past Surgical History Section: Yes (X2) Genitourinary Surgery: Yes (REMOVED BILAT FALLOPIAN TUBES) Hysterectomy: No Neurologic Surgery: Yes (SPINAL FUSION L-5 THRU S-4) Other Surgery: Yes Social History Alcohol Use: Yes (SOCIALLY) Tobacco Use: No Substance Use: No (DENIES) Allergies-Medications (Allergen,Severity, Reaction): Coded Allergies: Iodine (Verified Allergy, Severe, NAUSEA AND VOMITING, 03/23/17) Codeine (Verified Adverse Reaction, Intermediate, ITCHING, 03/23/17) Uncoded Allergies: SHELLFISH (Allergy, Severe, 11/15/05) Reported Meds & Prescriptions Reported Meds & Active Scripts Active No Active Prescriptions or Reported Medications Review of Systems Except as stated in HPI: all other systems reviewed are Neg Physical Exam Narrative GENERAL: Well-developed, well-nourished, comfortable, no apparent distress. SKIN: Focused skin assessment warm/dry. No rash. No pallor. HEAD: Atraumatic. Normocephalic. EYES: Pupils equal and round. No scleral icterus. No injection or drainage. ENT: Mucous membranes pink and moist. NECK: Trachea midline. No JVD. CARDIOVASCULAR: Regular rate and rhythm. No murmur appreciated. RESPIRATORY: No accessory muscle use. Clear to auscultation. Breath sounds equal bilaterally. GASTROINTESTINAL: Abdomen soft, nondistended. Moderate diffuse tenderness without peritoneal signs. Normal bowel sounds. No hernias. No masses. RECTUM: Exam performed with presence of female nurse. Small to moderate-sized right external hemorrhoid that is nonthrombosed. No other masses. No fissures. Heme-negative brown stool. MUSCULOSKELETAL: No obvious deformities. No clubbing. No cyanosis. No edema. NEUROLOGICAL: Awake and alert. No obvious cranial nerve deficits. Motor grossly within normal limits. Normal speech. PSYCHIATRIC: Appropriate mood and affect; insight and judgment normal. Data Data Last Documented VS Vital Signs Date Time Temp Pulse Resp B/P Pulse Ox O2 Delivery O2 Flow Rate FiO2 03/23/17 22:58 97.3 75 14 128/74 100 Orders Complete Blood Count With Diff (03/23/17 23:22) Comprehensive Metabolic Panel (03/23/17 23:22) Lipase (03/23/17 23:22) Prothrombin Time / Inr (Pt) (03/23/17 23:22) Act Partial Throm Time (Ptt) (03/23/17 23:22) Urinalysis - C+S If Indicated (03/23/17 23:22) Iv Access Insert/Monitor (03/23/17 23:22) Ecg Monitoring (03/23/17 23:22) Oximetry (03/23/17 23:22) Morphine Inj (Morphine Inj) (03/23/17 23:30) Ondansetron Inj (Zofran Inj) (03/23/17 23:30) Sodium Chlor 0.9% 1000 Ml Inj (Ns 1000 M (03/23/17 23:22) Sodium Chloride 0.9% Flush (Ns Flush) (03/23/17 23:30) Electrocardiogram (03/23/17 23:22) Ed Urine Pregnancytest Poc (03/23/17 23:22) Ct Abd/Pel W Iv Contrast(Rout) (03/23/17 23:44) C Diff Toxin Pcr (03/23/17 23:57) MDM Medical Decision Making Medical Screen Exam Complete: Yes Emergency Medical Condition: Yes Medical Record Reviewed: Yes Differential Diagnosis Diverticulitis, diverticular abscess, perforated viscus, colitis, gastritis, peptic ulcer disease, pancreatitis, hepatobiliary disease, C. difficile colitis Narrative Course Initially CT abdomen pelvis was ordered without contrast given shellfish allergy. When asked about this the patient reports that she gets an upset stomach after eating shellfish. She denies anaphylactic reaction. She also reports that she has had IV contrast in the past. CT abdomen pelvis was then reordered with IV contrast. At approximately midnight at the end of my shift the patient was signed out to Dr. Augustin to follow up with labs, imaging results, and formulate a disposition. Scripts No Active Prescriptions or Reported Meds Kevin Blanco MD Mar 24, 2017 00:05
[2017-03-24 00:08] LABS: CHLORIDE 105 MEQ/L (98-107); POTASSIUM 3.4 MEQ/L (3.5-5.1); SODIUM (NA) 139 MEQ/L (136-145)
[2017-03-24 00:10] LABS: AUTOMATED NEUTROPHIL # 2.1 TH/MM3 (1.8-7.7); BASOPHIL % 0.6 % (0.0-2.0); EOSINOPHIL # 0.1 TH/MM3 (0-0.4); EOSINOPHIL % 3.1 % (0.0-4.0); HEMATOCRIT 38.2 % (35.0-46.0); HEMO FLAGS DIFF FINAL; LYMPHOCYTE # 1.7 TH/MM3 (1.0-4.8); MEAN CELL VOLUME 96.7 FL (80.0-100.0); MEAN CORPUSCULAR HEMOGLOBIN 32.7 PG (27.0-34.0); MEAN CORPUSCULAR HGB CONC 33.8 % (32.0-36.0); MONO % 12.4 % (0.0-8.0); NEUT % 45.9 % (16.0-70.0); PLATELET COUNT 194 TH/MM3 (150-450); RED BLOOD COUNT 3.95 MIL/MM3 (4.00-5.30); RED CELL DISTRIBUTION WIDTH 12.6 % (11.6-17.2); WHITE BLOOD COUNT 4.5 TH/MM3 (4.0-11.0)
[2017-03-24 00:12] LABS: ANION GAP 6 MEQ/L (5-15); BICARBONATE 28.5 MEQ/L (21.0-32.0)
[2017-03-24 00:13] LABS: BLOOD UREA NITROGEN 13 MG/DL (7-18)
[2017-03-24 00:15] LABS: ALT (GPT) 26 U/L (10-53); AST (GOT) 21 U/L (15-37); GLOMERULAR FILTRATION RATE 75 ML/MIN (>89)
[2017-03-24 00:17] LABS: TOTAL BILIRUBIN ADULT 1.3 MG/DL (0.2-1.0)
[2017-03-24 00:18] LABS: ALKALINE PHOSPHATASE 71 U/L (45-117); URINE COLOR YELLOW (YELLW/STRAW)
[2017-03-24 00:19] LABS: BACTERIA, URINE OCC /hpf; COMMENT (UR) CULT NOT INDICATED; CULTURE IF INDICATED CULT NOT INDICATED; SQUAMOUS EPITHELIAL CELL URINE > 8 /hpf (0-5)
[2017-03-24 00:21] VITALS: BP 112/75; PULSE 79; RESP 16; O2SAT 98
[2017-03-24 00:23] LABS: APTT (PATIENT) 28.5 SEC (24.3-30.1); INTERNATIONAL NORMALIZED RATIO 0.9 RATIO; PROTHROMBIN TIME - PATIENT 10.2 SEC (9.8-11.6)
--- NOTE | 2017-03-24 00:26 | RADRPT ---
EXAM DATE/TIME: 03/23/2017 23:47 [facility] COMPARISON: CT ABDOMEN & PELVIS W/O CONTRAST, March 09, 2017, 7:23. INDICATIONS : ABdominal pain IV CONTRAST: 96 cc Omnipaque 350 (iohexol) IV ORAL CONTRAST: No oral contrast ingested. RADIATION DOSE: 13.75 CTDIvol (mGy) MEDICAL HISTORY : Diverticulitis. A FIB SURGICAL HISTORY : Tubal ligation. Fusion, lumbar.fillopian tubes removed ENCOUNTER: Initial ACUITY: 2 days PAIN SCALE: 6/10 LOCATION: Bilateral upper quadrant TECHNIQUE: Volumetric scanning of the abdomen and pelvis was performed. Using automated exposure control and ad justment of the mA and/or kV according to patient size, radiation dose was kept as low as reasonably achievable to obtain optimal diagnostic quality images. DICOM format image data is available electro nically for review and comparison. FINDINGS: The liver and spleen are free of focal defects. The gallbladder and pancreas demonstrate no abnormali ty. The adrenal glands are normal. The kidneys demonstrate no evidence of solid renal mass or hydrone phrosis. No free fluid or abdominal masses are identified. No para-aortic adenopathy is seen. The pre viously seen inflammatory change involving the splenic flexure is no longer identified. Examination of the pelvis demonstrates no evidence of free fluid or pelvic mass. No abnormally enlarg ed inguinal or retroperitoneal lymph nodes are present. The bladder is unremarkable. There is heterog eneous enhancement of the uterus with a 2 cm right adnexal cyst. CONCLUSION: 1. No evidence of acute abdominal or pelvic process. No masses are identified. 2. 2 cm right adnexal cyst Gino Pompa MD on March 24, 2017 at 0:22 Board Certified Radiologist. This report was verified electronically.
--- NOTE | 2017-03-24 17:28 | EKG ---
Date Performed: 03/24/2017 Time Performed: 00:24:58 PTAGE: 36 years EKG: Sinus rhythm WITH SINUS ARRHYTHMIA LOW QRS VOLTAGE IN PRECORDIAL LEADS BORDERLINE ECG NO PREVIOUS TRACING DOCTOR: Henna Forte Interpretating Date/Time 03/24/2017 17:26:43
== END 2017-03-24 01:46 | disposition home or self-care (01) ==
LOC: PHED 22:56
DX: R10.84 Generalized abdominal pain (principal); K64.4 Residual hemorrhoidal skin tags; I48.91 Unspecified atrial fibrillation; Z80.0 Family history of malignant neoplasm of digestive organs
CPT/HCPCS: 74177; 80053; 81001; 83690; 84703; 85025; 85610; 85730; 93005; 96361; 96374; 99285; J2270; J2405; J7030; Q9967

== ENCOUNTER → 2017-06-17 | Day surgery (SDC) | payer BC ==
[~2017-06-17] MED LIST changes: -CIPR-9 PO; -DIFL150T PO; -HYDR-3533 PO; +KETOROLAC TROMETHAMINE 30 MG/ML (IVP) VIAL IV PUSH ONE; +LACTATED RINGER'S 1000 ML INJ 1,000 ML IV ONE; +LACTATED RINGER'S 1000 ML INJ 1,000 ML ONE; +MEPERIDINE HCL 25 MG/ML VIAL ONE; -METR-1 PO; +MIDAZOLAM HCL 2 MG/2 ML VIAL ONE; +ONDANSETRON HCL 4 MG/2 ML VIAL IV PUSH ONE; +ONDANSETRON HCL 4 MG/2 ML VIAL IV PUSH PRN; +PROPOFOL 200 MG/20 ML AMP IV ONE; +ceFAZolin 2 GM PREMIX 50 ML ONE; +oxyCODONE/ACETAMINOPHEN 5 MG/325 MG TAB ONE; +oxyCODONE/ACETAMINOPHEN 5 MG/325 MG TAB PO PRN
--- NOTE | 2017-06-17 08:07 | MP ---
cc: JAQUAN ARENAS MD DATE OF SURGERY: 06/17/2017 PREOPERATIVE DIAGNOSIS Hypermenorrhea. POSTOPERATIVE DIAGNOSIS Hypermenorrhea. OPERATION D&C, endometrial ablation and post-procedural hysteroscopy. SURGEON Dr. Jaquan Arenas MD ANESTHESIA General. ESTIMATED BLOOD LOSS 50 ccs. FINDINGS None. COMPLICATIONS None. BUSINESS EDUCATION PROFESSOR None. SPECIMENS Endometrial curettings. PROCEDURE The patient was prepped and draped in the dorsolithotomy position. Weighted speculum was placed in the posterior vaginal vault and the anterior lip of the cervix was grasped with a single-tooth tenaculum. Cervix was dilated up using Kalyan dilators. Sharp curetting instrument was entered in the endometrial cavity. Curettings were taken after which a NovaSure endometrial ablation unit was entered in the endometrial cavity and set on heat cycle for approximately 85 seconds. It was then withdrawn. The hysteroscope was then inserted in the uterus to ensure that all parts of the cavity were ablated, and they were. The hysteroscope was then removed as was the tenaculum and the speculum. The patient returned to the recovery room in stable condition. Jaquan Arenas MD JSG/TLL /7:50 AM /7:55 AM
== END | disposition home or self-care (01) ==
LOC: ESDC 06:05
PROVIDERS: ATTEND Obstetrics & Gynecology
DX: N92.0 Excessive and frequent menstruation with regular cycle (principal)
CPT/HCPCS: 00952; 58563; 88305; J0690; J1885; J2175; J2250; J2405; J3010; J7120

== ENCOUNTER 2017-07-15 11:47 | Emergency (ER) | payer BC ==
[~2017-07-15] VITALS: Ht 157.5 cm; Wt 88.8 kg
[~2017-07-15 11:47] MED LIST changes: -KETOROLAC TROMETHAMINE 30 MG/ML (IVP) VIAL IV PUSH ONE; -LACTATED RINGER'S 1000 ML INJ 1,000 ML IV ONE; -LACTATED RINGER'S 1000 ML INJ 1,000 ML ONE; -MEPERIDINE HCL 25 MG/ML VIAL ONE; -MIDAZOLAM HCL 2 MG/2 ML VIAL ONE; -ONDANSETRON HCL 4 MG/2 ML VIAL IV PUSH ONE; -ONDANSETRON HCL 4 MG/2 ML VIAL IV PUSH PRN; -PROPOFOL 200 MG/20 ML AMP IV ONE; -ceFAZolin 2 GM PREMIX 50 ML ONE; -oxyCODONE/ACETAMINOPHEN 5 MG/325 MG TAB ONE; -oxyCODONE/ACETAMINOPHEN 5 MG/325 MG TAB PO PRN
[2017-07-15 11:58] VITALS: BP 118/79; PULSE 104; RESP 18; TEMP 98.1; O2SAT 100
[2017-07-15] MEDS ORDERED: ONDANSETRON HCL 4 MG/2 ML VIAL ONE (12:26)
--- NOTE | 2017-07-15 12:52 | PD ---
HPI Chief Complaint: Emergency Room Orderly Problem/Complaint Time Seen by Provider: 12:35 Travel History International Travel<30 days: No Contact w/Intl Traveler<30days: No Traveled to known affect area: No History of Present Illness HPI This 36-year-old female is complaining of severe lower abdominal crampy pain. He says it started a few days ago but seems to be getting worse. Today she had vomiting he believes is because the pain was so bad. She has history of ruptured ectopic pregnancies 2. She has had bilateral tubal removals. She says she has not had sex for the last 6 weeks. She had a cervical ablation done at [place] on the . She has had some discharge since then. She is not aware of fever or chills. PFSH Past Medical History Hx Anticoagulant Therapy: No Atrial Fibrillation: Yes Blood Disorders: No Anxiety: Yes Depression: No Cancer: No Cardiovascular Problems: Yes (HX A FIB) Chemotherapy: No Cerebrovascular Accident: No Diabetes: No Diminished Hearing: No Endocrine: No Gastrointestinal Disorders: No Genitourinary: No Immune Disorder: No Implanted Vascular Access Dvce: No Musculoskeletal: No Neurologic: No Psychiatric: No Reproductive: Yes (INFERTILITY ISSUES) Respiratory: No Immunizations Current: No Influenza Vaccination: Yes ?: Not LMP: 06/08/17 : 5 Para: 2 Miscarriage: 2 : 1 Tubal Ligation: Yes Past Surgical History Section: Yes (X2) Genitourinary Surgery: Yes (REMOVED BILAT FALLOPIAN TUBES) Gynecologic Surgery: Yes (CERVICAL ABLASION) Hysterectomy: No Neurologic Surgery: Yes (SPINAL FUSION L-5 THRU S-4) Other Surgery: Yes Social History Alcohol Use: Yes (SOCIALLY) Tobacco Use: No Substance Use: No (DENIES) Allergies-Medications (Allergen,Severity, Reaction): Coded Allergies: iodine (Unverified Allergy, Severe, NAUSEA AND VOMITING, 07/15/17) potassium iodide (Unverified Allergy, Severe, NAUSEA AND VOMITING, ) povidone-iodine (Unverified Allergy, Severe, NAUSEA AND VOMITING, 07/15/17 ) sodium iodide (Unverified Allergy, Severe, NAUSEA AND VOMITING, 07/15/17) sodium iodide (Unverified Allergy, Severe, NAUSEA AND VOMITING, 07/15/17) codeine (Unverified Adverse Reaction, Intermediate, ITCHING, 07/15/17) Uncoded Allergies: SHELLFISH (Allergy, Severe, 11/15/05) Reported Meds & Prescriptions Reported Meds & Active Scripts Active Reported Prozac (Fluoxetine HCl) 10 Mg Cap 10 Mg PO DAILY Review of Systems General / Constitutional: No: Fever, Chills Eyes: No: Diploplia HENT: No: Headaches Cardiovascular: No: Chest Pain or Discomfort, Palpitations Respiratory: No: Cough, Shortness of Breath Gastrointestinal: Positive: Vomiting Genitourinary: Positive: Pelvic Pain Musculoskeletal: No: Myalgias, Arthralgias Neurologic: No: Weakness Psychiatric: No: Anxiety, Depression Hematologic/Lymphatic: No: Easy Bruising Physical Exam Narrative GENERAL: Well-developed female. She is uncomfortable with pain SKIN: Focused skin assessment warm/dry. HEAD: Atraumatic. Normocephalic. EYES: Pupils equal and round. No scleral icterus. No injection or drainage. ENT: No nasal bleeding or discharge. Mucous membranes pink and moist. NECK: Trachea midline. No JVD. CARDIOVASCULAR: Regular rate and rhythm. No murmur appreciated. RESPIRATORY: No accessory muscle use. Clear to auscultation. Breath sounds equal bilaterally. GASTROINTESTINAL: Abdomen soft, non-tender, nondistended. Hepatic and splenic margins not palpable. MAGAZINE EDITOR there is some greenish drainage from the cervical os. There is pain with movement of the cervix MUSCULOSKELETAL: No obvious deformities. No clubbing. No cyanosis. No edema. NEUROLOGICAL: Awake and alert. No obvious cranial nerve deficits. Motor grossly within normal limits. Normal speech. PSYCHIATRIC: Appropriate mood and affect; insight and judgment normal. Data Data Last Documented VS Vital Signs Date Time Temp Pulse Resp B/P (MAP) Pulse Ox O2 Delivery O2 Flow Rate FiO2 07/15/17 13:57 90 18 95/69 (78) 99 Room Air 07/15/17 11:58 98.1 Orders Orders Ondansetron Inj (Zofran Inj) (07/15/17 12:26) Complete Blood Count With Diff (07/15/17 12:46) Basic Metabolic Panel (Bmp) (07/15/17 12:46) Gc And Chlamydia Pcr (07/15/17 12:46) Wet Prep Profile (07/15/17 12:46) Urinalysis - C+S If Indicated (07/15/17 12:46) Ceftriaxone Inj (Rocephin Inj) (07/15/17 13:00) Ondansetron Inj (Zofran Inj) (07/15/17 13:00) Hydromorphone Pf Inj (Dilaudid Pf Inj) (07/15/17 13:00) Ed Urine Pregnancytest Poc (07/15/17 12:46) Sodium Chlor 0.9% 1000 Ml Inj (Ns 1000 M (07/15/17 13:00) Labs Laboratory Tests Test 07/15/17 13:00 07/15/17 13:20 White Blood Count 6.7 TH/MM3 Red Blood Count 3.99 MIL/MM3 Hemoglobin 13.1 GM/DL Hematocrit 38.0 % Mean Corpuscular Volume 95.2 FL Mean Corpuscular Hemoglobin 32.7 PG Mean Corpuscular Hemoglobin Concent 34.4 % Red Cell Distribution Width 12.9 % Platelet Count 190 TH/MM3 Mean Platelet Volume 8.1 FL Neutrophils (%) (Auto) 71.0 % Lymphocytes (%) (Auto) 17.6 % Monocytes (%) (Auto) 9.4 % Eosinophils (%) (Auto) 1.7 % Basophils (%) (Auto) 0.3 % Neutrophils # (Auto) 4.8 TH/MM3 Lymphocytes # (Auto) 1.2 TH/MM3 Monocytes # (Auto) 0.6 TH/MM3 Eosinophils # (Auto) 0.1 TH/MM3 Basophils # (Auto) 0.0 TH/MM3 CBC Comment DIFF FINAL Differential Comment Clue Cells (Wet Prep) NONE SEEN Vaginal Trichomonas (Wet Prep) NONE SEEN Vaginal Yeast (Wet Prep) NONE SEEN Blood Urea Nitrogen 9 MG/DL Creatinine 0.65 MG/DL Random Glucose 92 MG/DL Calcium Level 8.4 MG/DL Sodium Level 139 MEQ/L Potassium Level 3.7 MEQ/L Chloride Level 105 MEQ/L Carbon Dioxide Level 26.5 MEQ/L Anion Gap 8 MEQ/L Estimat Glomerular Filtration Rate 104 ML/MIN [facility] Medical Decision Making Medical Screen Exam Complete: Yes Emergency Medical Condition: Yes Medical Record Reviewed: Yes Differential Diagnosis Differential includes endometritis, cervicitis, Narrative Course White count is 6.7. Patient was given pain medication with good response. Later spoken with Dr. Vela who did her procedure and he recommends antibiotics. He suggested amoxicillin and Flagyl. The patient says she has had bad reactions to Flagyl in the past. I will prescribe doxycycline as well as some pain medication to use for a few days Diagnosis Primary Impression: Cervicitis Scripts Oxycodone-Acetaminophen (Percocet) 7.5-325 mg Tab 1 TAB PO Q4H Y for PAIN, #15 TAB 0 Refills Prov: Donal Urban MD 07/15/17 Doxycycline Hyclate (Vibramycin) 100 Mg Cap 100 MG PO BID for Infection for 10 Days, #20 CAP 0 Refills Prov: Donal Urban MD 07/15/17 Disposition: 01 DISCHARGE HOME Condition: Stable Donal Urban MD Jul 15, 2017 12:52
[2017-07-15] MEDS ORDERED: ONDANSETRON HCL 4 MG/2 ML VIAL IVP ONE (13:00)
[2017-07-15] MEDS ORDERED: cefTRIAXone INJ 1,000 MG in SODIUM CHLORIDE 0.9% INJ 100 ML IV ONE (13:00)
[2017-07-15] MEDS ORDERED: HYDROmorphone HCL PF 1 MG/ML VIAL IVS ONE (13:00)
[2017-07-15] MEDS ORDERED: SODIUM CHLOR 0.9% 1000 ML INJ 1,000 ML IV SCH (13:00)
[2017-07-15 13:24] LABS: AUTOMATED NEUTROPHIL # 4.8 TH/MM3 (1.8-7.7); BASOPHIL % 0.3 % (0.0-2.0); EOSINOPHIL # 0.1 TH/MM3 (0-0.4); EOSINOPHIL % 1.7 % (0.0-4.0); HEMO FLAGS DIFF FINAL; LYMPH % 17.6 % (9.0-44.0); LYMPHOCYTE # 1.2 TH/MM3 (1.0-4.8); MEAN CELL VOLUME 95.2 FL (80.0-100.0); MEAN CORPUSCULAR HEMOGLOBIN 32.7 PG (27.0-34.0); MEAN CORPUSCULAR HGB CONC 34.4 % (32.0-36.0); MONO % 9.4 % (0.0-8.0); PLATELET COUNT 190 TH/MM3 (150-450); RED BLOOD COUNT 3.99 MIL/MM3 (4.00-5.30); RED CELL DISTRIBUTION WIDTH 12.9 % (11.6-17.2); WHITE BLOOD COUNT 6.7 TH/MM3 (4.0-11.0)
[2017-07-15 13:32] LABS: POTASSIUM 3.7 MEQ/L (3.5-5.1)
[2017-07-15 13:35] LABS: BICARBONATE 26.5 MEQ/L (21.0-32.0)
[2017-07-15 13:57] VITALS: BP 95/69; PULSE 90; RESP 18; O2SAT 99
[2017-07-15 14:02] LABS: BLOOD, URINE NEG (NEG); GLUCOSE,URINE NEG (NEG); KETONE, URINE NEG (NEG); NITRITE,URINE NEG (NEG)
[2017-07-15] MEDS ORDERED: VIBR100C PO (14:08)
[2017-07-15] MEDS ORDERED: PERC7.5T13 PO (14:08)
[2017-07-15 14:20] LABS: METHOD OF COLLECTION VOIDED; MUCUS URINE FEW /lpf (OCC); URINE COLOR YELLOW (YELLW/STRAW); WBC, URINE 0-2 /hpf (0-5)
[2017-07-15 14:21] LABS: COMMENT (UR) CULT NOT INDICATED; CULTURE IF INDICATED CULT NOT INDICATED
[2017-07-15 19:01] LABS: CHLAMYDIA PCR NOT DETECTED (NOT DETECT); NEISSERIA PCR NOT DETECTED (NOT DETECT)
== END 2017-07-15 14:24 | disposition home or self-care (01) ==
LOC: PHED 11:47
DX: N72 Inflammatory disease of cervix uteri (principal); R11.10 Vomiting, unspecified; Z98.890 Other specified postprocedural states; Z86.79 Personal history of other diseases of the circulatory system; Z86.59 Personal history of other mental and behavioral disorders; Z87.42 Personal history of other diseases of the female genital tract
CPT/HCPCS: 80048; 81001; 84703; 85025; 87210; 87491; 87591; 96365; 96375; 99284; J0696; J1170; J7030; J2405

== ENCOUNTER 2018-05-23 00:24 | Inpatient (IN) ==
[2018-05-23 01:14] LABS: Baso % (Auto) 0.7 % (0.0-2.0); Eos # (Auto) 0.1 th/mm3 (0.0-0.4); Eos % (Auto) 2.1 % (0.0-4.0); Hemoglobin 13.4 gm/dL (11.6-15.3); Lymph # (Auto) 1.8 th/mm3 (1.0-4.8); Mean Corpuscular HGB Conc 35.4 % (32.0-36.0); Mean Corpuscular Hemoglobin 34.6 pg (27.0-34.0); Mean Corpuscular Volume 97.7 fL (80.0-100.0); Mono # (Auto) 0.5 th/mm3 (0.0-0.9); Mono % (Auto) 10.5 % (0.0-8.0); Neut # (Auto) 2.4 th/mm3 (1.8-7.7); Neut % (Auto) 49.7 % (16.0-70.0); Platelet Count 200 th/mm3 (150-450); Red Blood Count 3.89 mil/mm3 (4.00-5.30); Red Cell Distribution Width 13.3 % (11.6-17.2); White Blood Count 4.8 th/mm3 (4.0-11.0)
--- NOTE | 2018-05-23 01:21 | ED ---
HPI General Chief Complaint: Psychiatric Symptoms Stated Complaint: Chante Quiros Time Seen by Provider: 05/23/18 00:28 Source: patient Mode of arrival: ambulatory Limitations: no limitations History of Present Illness HPI Narrative: 37-year-old white female presents emergency department on a voluntary basis for psychological evaluation. Patient states that she has been overwhelmed with social issues at home. She has contemplated suicide. She was going to slit her wrists. She denies any acts of self-harm. She denies any history of cutting in the past. Patient is accompanied by her bargain table clerk. The patient states that she really does not want to hurt herself. She wants to get help with her depression. She denies any toxic ingestions. She does smoke electronic cigarette, drinks occasionally and marijuana occasionally. Related Data Home Medications Medication Instructions Recorded Confirmed No Known Home Medications 05/23/18 05/23/18 Allergies Allergy/AdvReac Type Severity Reaction Status Date / Time iodine Allergy Severe NAUSEA AND Unverified 07/15/17 11:58 VOMITING potassium iodide Allergy Severe NAUSEA AND Unverified 07/15/17 11:58 VOMITING povidone-iodine Allergy Severe NAUSEA AND Unverified 07/15/17 11:58 VOMITING sodium iodide Allergy Severe NAUSEA AND Unverified 07/15/17 11:58 VOMITING sodium iodide Allergy Severe NAUSEA AND Unverified 07/15/17 11:58 VOMITING codeine AdvReac Intermediate ITCHING Unverified 07/15/17 11:58 SHELLFISH Allergy Severe Uncoded 11/15/05 20:07 Review of Systems ROS: all other systems reviewed are negative [facility] Medical History Medical History Anxiety (Acute) Depression (Acute) Ectopic (Acute) PMDD (premenstrual dysphoric disorder) (Acute) Rotator cuff disorder (Acute) Surgical History Surgical History H/O spinal fusion (Acute) Status post surgical removal of both fallopian tubes (Acute) Social History Social History Substance History: No History of Abuse Smoking Status: Current every day smoker Tobacco Type: E-Cigarettes How Often Do You Have a Drink Containing Alcohol: Monthly or less Recent Travel in [place] within the Last 8 Weeks: No Recent Out of Country Travel within the Last 8 Weeks: No Immunization History Tetanus Immunization: >5 Years Exam Narrative Exam Narrative: GENERAL: Well-nourished, well-developed patient. SKIN: Warm and dry. HEAD: Normocephalic and atraumatic. EYES: No scleral icterus. No injection or drainage. ENT: No nasal drainage noted. Mucous membranes pink. Airway patent. NECK: Supple, trachea midline. Moves head freely without obvious discomfort. CARDIOVASCULAR: Regular rate and rhythm without murmurs, gallops, or rubs. RESPIRATORY: Breath sounds equal bilaterally. No accessory muscle use. GASTROINTESTINAL: Abdomen soft, non-tender, nondistended. EXTREMITIES: No cyanosis or edema. BACK: Nontender without obvious deformity. No CVA tenderness. NEURO: Patient is alert and oriented. no sensorimotor deficits. Nonfocal. Normal speech. PSYCH: No delusions. No auditory or visual hallucinations. Course Initial Documented Vital Signs Temperature 98.6 F 05/23/18 00:26 Pulse Rate 102 H 05/23/18 00:26 Respiratory Rate 16 05/23/18 00:26 Blood Pressure 139/91 H 05/23/18 00:26 Pulse Oximetry 98 05/23/18 00:26 Last Documented Vital Signs Temperature 98.6 F 05/23/18 00:26 Pulse Rate 102 H 05/23/18 00:26 Respiratory Rate 16 05/23/18 00:26 Blood Pressure 139/91 H 05/23/18 00:26 Pulse Oximetry 98 05/23/18 00:26 Medical Decision Making MDM Narrative Medical decision making narrative: We will perform routine laboratory tests for medical clearance Medical Screen Exam Complete: Yes Emergency Medical Condition: Yes Differential Diagnosis Differential Diagnosis: MDM: High Differential diagnoses: Schizophrenia, schizoaffective disorder, bipolar, anxiety, depression, adjustment reaction, mood disorder NOS, ODD, depressive disorder NOS, psychosis NOS, substance induced mood disorder, infection, electrolyte abnormality, malingering. Mental health screening discussed with the patient. Psychiatric screen ordered. Lab Data Result diagrams: 05/23/18 00:45 05/23/18 00:45 Lab Results 05/23/18 Range/Units 00:45 WBC 4.8 (4.0-11.0) th/mm3 RBC 3.89 L (4.00-5.30) mil/mm3 Hgb 13.4 (11.6-15.3) gm/dL Hct 38.0 (35.0-46.0) % MCV 97.7 (80.0-100.0) fL MCH 34.6 H (27.0-34.0) pg MCHC 35.4 (32.0-36.0) % RDW 13.3 (11.6-17.2) % Plt Count 200 (150-450) th/mm3 MPV 8.0 (7.0-11.0) fL Neut % (Auto) 49.7 (16.0-70.0) % Lymph % (Auto) 37.0 (9.0-44.0) % [place] % (Auto) 10.5 H (0.0-8.0) % Eos % (Auto) 2.1 (0.0-4.0) % Baso % (Auto) 0.7 (0.0-2.0) % Neut # (Auto) 2.4 (1.8-7.7) th/mm3 Lymph # (Auto) 1.8 (1.0-4.8) th/mm3 [place] # (Auto) 0.5 (0.0-0.9) th/mm3 Eos # (Auto) 0.1 (0.0-0.4) th/mm3 Baso # (Auto) 0.0 (0.0-0.2) th/mm3 WBC Differential . Differential Comment Auto diff final Discharge Plan Discharge Disposition Patient Disposition: 30 Still Patient Physicians Team ED Provider: Fidencio Esteves ED Midlevel Provider: Mike Rice Primary Care Provider: Patrick Farris Rxs /Orders / Referrals /Forms Prescriptions: No Action No Known Home Medications RF: 0 Status ED Status: With Doctor
[2018-05-23 01:26] LABS: Amphetamine Screen,Urine Neg (Neg); Barbiturate Screen,Urine Neg (Neg); Cannabinoid Screen,Urine Neg (Neg); Cocaine Screen,Urine Neg (Neg)
[2018-05-23 01:27] LABS: Opiate Screen,Urine Neg (Neg)
[2018-05-23 01:36] LABS: Albumin 3.8 g/dL (3.4-5.0); Anion Gap 9 meq/L (5-15); Aspartate Aminotransferase 17 U/L (15-37); Blood Urea Nitrogen 9 mg/dL (7-18); Calcium 8.3 mg/dL (8.5-10.1); Carbon Dioxide 24.7 meq/L (21.0-32.0); Chloride 109 meq/L (98-107); Glomerular Filtration Rate 80 mL/min (>89); Glucose,Random 100 mg/dL (74-106); Potassium 3.8 meq/L (3.5-5.1); Sodium 143 meq/L (136-145)
[2018-05-23 01:46] LABS: Alanine Aminotransferase 21 U/L (10-53); Alkaline Phosphatase 61 U/L (45-117); Total Protein 6.9 g/dL (6.4-8.2)
[2018-05-23] MEDS ORDERED: Ibuprofen 600 MG Tablet PO ONE (01:57)
[2018-05-23] MEDS ORDERED: Acetaminophen 500 MG Tablet PO ONE (09:54)
--- NOTE | 2018-05-23 11:59 | P.HPPSY ---
Provisional Diagnosis Admission Date: May 23, 2018 00:24 [place] I.: Adjustment disorder with depressed mood vs major depressive disorder, anxiety [place] II.: Cluster B traits Competence Certification of Person's Competence To Provide Express and Informed Consent I have personally examined Jen Mclean, a person being served at [facility] on, May 23, 2018 1144. Express and informed consent means consent voluntarily given in writing, by a competent person, after sufficient explanation and disclosure of the subject matter involved to enable the person to make a knowing and willful decision without any element of force, fraud, deceit, duress, or other form of constraint or coercion. This person is 18 years of age or older, is not now known to be incompetent to consent to treatment with a guardian advocate, and does not have a health care surrogate or proxy currently making medical treatment decisions. I have found this person to be one of the following: [x] Competent to provide express and informed consent, as defined above, for voluntary admission to this facility and is competent to provide express and informed consent for treatment. He/she has the consistent capacity to make well reasoned, willful, and knowing decisions concerning his or her medical or mental health treatment. The person fully and consistently understands the purpose of the admission for examination/placement and is fully capable of personally exercising all rights assured [place] Incompetent to provide express and informed consent to voluntary admission, and this is incompetent to provide express and informed consent to treatment. The person must be transferred to involuntary status and a petition for a guardian advocate filed with the Circuit Court. [] Refusing to provide express and informed consent to voluntary admission but is competent to provide express and informed consent for treatment. The person must be discharged or transferred to involuntary status. Form shall be completed within 24 hours of a person's arrival at the receiving facility and filed in the clinical record of each person: 1. Admitted on a voluntary basis 2. Permitted to provide express and informed consent to his/her own treatment 3. Allowed to transfer from involuntary to voluntary status 4. Prior to permitting a person to consent to his or her own treatment after having been previously found incompetent to consent to treatment. History of Present Illness Capacity: Has capacity History of Present Illness: The patient is a 37-year-old woman, domiciled with her and kids in [place], self-employed, with a psychiatric history of anxiety, depression, no psychiatric hospitalizations, no previous suicidal attempts, she has failed to multiple antidepressants and anxiolytic medication in the past, she denies the use of illegal drugs, drinks alcohol occasionally, no significant medical history, who presents emergency department on a voluntary basis for psychological evaluation. Patient states that she has been overwhelmed with social issues at home. 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 She reports that she has been feeling very hopeless, helpless, worthless, with increased sensitivity to rejection and frustration, and she has contemplated suicide. She was going to slit her wrists. She denies any acts of self-harm. She denies any history of cutting in the past. Patient is accompanied by her quarter doper. The patient states that she really does not want to hurt herself. She wants to get help with her depression. Patient is fully oriented x3, no attention deficit, no filtration of consciousness at the moment. The patient does not present any paranoia, agitation, aggressive behavior, ideas of reference, delusions, self-deficit behavior. PPHX: Anxiety and depression, no prepsychotic hospitalizations, she has failed to Paxil, Zoloft, Celexa PMHx: No significant medical history Family Hx: Substance HX: She does smoke electronic cigarette, drinks occasionally and marijuana occasionally. Social Hx: Patient was born and raised in [place], she lives in [place] with her and 3 kids, she is self-employed, currently college student. Review of Systems All other systems reviewed negative except as stated in HPI Psychiatric: Reports anxiety, Reports depression, Reports irritability, Reports mood swings, Reports thoughts of hurting/killing yourself PMFSH - History History Provided By: Patient - Medical History Medical History: Medical History (Last Reviewed 05/23/18 @ 01:25 by JESSE Herman) Anxiety Depression Ectopic PMDD (premenstrual dysphoric disorder) Rotator cuff disorder - Surgical History Surgical History: Surgical History (Last Reviewed 05/23/18 @ 01:25 by JESSE Herman) H/O spinal fusion Status post surgical removal of both fallopian tubes - Tobacco History Tobacco Use In Past 30 Days: Yes Smoking Status: Current every day smoker Tobacco Type: E-Cigarettes - Alcohol History How Often Do You Have a Drink Containing Alcohol: Monthly or less - Substance Use History Substance History: Active Abuse - Substance Use Type Other Type: VAPE Status: Active Route Used: Inhalation Frequency: DAILY Alcohol Status: Active Route Used: By Mouth Frequency: OCCASSIONALLY - Travel History Recent Travel in the [place] Within the Last 8 Weeks: No Recent Travel Out of the Country Within the Last 8 Weeks: No - Immunization History Tetanus Immunization: >5 Years Medications and Allergies Allergies Allergy/AdvReac Type Severity Reaction Status Date / Time iodine Allergy Severe NAUSEA AND Unverified 07/15/17 11:58 VOMITING potassium iodide Allergy Severe NAUSEA AND Unverified 07/15/17 11:58 VOMITING povidone-iodine Allergy Severe NAUSEA AND Unverified 07/15/17 11:58 VOMITING sodium iodide Allergy Severe NAUSEA AND Unverified 07/15/17 11:58 VOMITING sodium iodide Allergy Severe NAUSEA AND Unverified 07/15/17 11:58 VOMITING codeine AdvReac Intermediate ITCHING Unverified 07/15/17 11:58 SHELLFISH Allergy Severe Uncoded 11/15/05 20:07 Home Medications Medication Instructions Recorded Confirmed Type No Known Home Medications 05/23/18 05/23/18 History Results - Labs CBC & Chem 7: 05/23/18 00:45 05/23/18 00:45 Labs: Laboratory Results - last 24 hr 05/23/18 05/23/18 05/23/18 00:45 00:45 00:45 WBC 4.8 RBC 3.89 L Hgb 13.4 Hct 38.0 MCV 97.7 MCH 34.6 H MCHC 35.4 RDW 13.3 Plt Count 200 MPV 8.0 Neut % (Auto) 49.7 Lymph % (Auto) 37.0 [place] % (Auto) 10.5 H Eos % (Auto) 2.1 Baso % (Auto) 0.7 Neut # (Auto) 2.4 Lymph # (Auto) 1.8 [place] # (Auto) 0.5 Eos # (Auto) 0.1 Baso # (Auto) 0.0 WBC Differential . Differential Comment Auto diff final Sodium 143 Potassium 3.8 Chloride 109 H Carbon Dioxide 24.7 Anion Gap 9 BUN 9 Creatinine 0.81 Estimated GFR 80 L Random Glucose 100 Calcium 8.3 L Total Bilirubin 1.4 H AST 17 ALT 21 Alkaline Phosphatase 61 Total Protein 6.9 Albumin 3.8 TSH 1.750 Urine Opiates Screen Neg Ur Barbiturates Screen Neg Ur Amphetamines Screen Neg U Benzodiazepines Scrn Neg Urine Cocaine Screen Neg U Cannabinoids Screen Neg Serum Alcohol Less than 3 Exam Vital signs: Vital Signs 05/23/18 00:26 05/23/18 10:25 05/23/18 11:32 Temperature 98.6 F Pulse Rate 102 H 79 Respiratory Rate 16 16 Blood Pressure 139/91 H 126/84 Pulse Oximetry 98 99 Intake & Output 05/22/18 05/23/18 05/23/18 18:59 06:59 18:59 Weight 79.379 kg Narrative: No catatonia, No EPS, no stiffness, no gait disturbances - Constitutional mild distress - Routine HEENT Exam Head: Present: normocephalic, atraumatic Eye: Present: EOMI ENT: Present: mucous membranes moist Mental Status Examination Appearance: Appropriate Consciousness: Alert Orientation: x4 Motor Activity: Normal gait Speech: Unremarkable Language: Adequate Fund of Knowledge: Adequate Attention and Concentration: Adequate Memory: Unremarkable Mood: Sad Affect: Sad Thought Process & Associations: Intact Thought Content: Appropriate Hallucination Type: None Delusion Type: None Suicidal Ideation: Yes Suicidal Plan: No Suicidal Intention: No Homicidal Ideation: No Homicidal Plan: No Homicidal Intention: No Insight: Poor Judgment: Poor Assessment and Plan - Assessment (1) Acute adjustment disorder with depressed mood Code(s): F43.21 - Adjustment disorder with depressed mood Status: Acute - Plan Plan: She reports that she has been feeling very hopeless, helpless, worthless, with increased sensitivity to rejection and frustration, and she has contemplated suicide. She also reports anxiety and panic attacks. She needs psychiatric admission for stabilization. will start clonazepam 0.5 mg bid for her anxiety and Effexor 37.5 mg bid for depression. Justification for Continued Inpatient Stay: Admission is indicated.
[2018-05-23] MEDS: Venlafaxine XR 75 MG Capsule PO SCH (15:01)
[2018-05-23] MEDS: Acetaminophen 500 MG Tablet PO PRN (18:43)
[2018-05-23] MEDS: clonazePAM 0.5 MG Tablet PO SCH (20:33)
[2018-05-24] MEDS: Acetaminophen 500 MG Tablet PO PRN ×2 (03:57→11:02)
[2018-05-24] MEDS: Venlafaxine XR 75 MG Capsule PO SCH (09:36)
[2018-05-24] MEDS: clonazePAM 0.5 MG Tablet PO SCH (09:36)
--- NOTE | 2018-05-24 19:07 | P.PNPSY ---
Subjective Remarks: Reviewed electronic medical records and discussed case with staff. Follow-up was conducted in patient's room. Patient reports that she is sleeping and eating good. She advises that her mood is fine but she states that "I does need to get on some medications". She lists several medication she has previously taken however, she does admit that she did not take them with any regularity. After some discussion with her I am starting her on sertraline 25 mg by mouth. The first 1 will be at bedtime tonight and we will reassess tomorrow or how she tolerates it. Mental Status Examination Appearance: Appropriate Consciousness: Alert Orientation: x4 Motor Activity: Normal gait Speech: Unremarkable Language: Adequate Fund of Knowledge: Adequate Attention and Concentration: Adequate Memory: Unremarkable Mood: Sad Affect: Sad Thought Process & Associations: Intact Thought Content: Appropriate Hallucination Type: None Delusion Type: None Suicidal Ideation: Yes Suicidal Plan: No Suicidal Intention: No Homicidal Ideation: No Homicidal Plan: No Homicidal Intention: No Insight: Poor Judgment: Poor Assessment and Plan - Assessment (1) Acute adjustment disorder with depressed mood Code(s): F43.21 - Adjustment disorder with depressed mood Status: Acute - Plan Plan: Patient will be reevaluated Saturday by the attending psychiatrist. Continue with current treatment plan. Patient will be started on 25 mg of sertraline to target her self-reported panic and depressive symptoms. Justification for Continued Inpatient Stay: Moving this patient to a less restrictive environment would likely result in decompensation.
[2018-05-24] MEDS: Ibuprofen 600 MG Tablet PO PRN (20:32)
[2018-05-24] MEDS ORDERED: Sertraline 50 MG Tablet PO SCH (21:00)
[2018-05-25] MEDS: Ibuprofen 600 MG Tablet PO PRN (08:33)
--- NOTE | 2018-05-25 14:07 | P.PNPSY ---
Subjective Remarks: Reviewed electronic medical records and discussed case with staff. Follow-up was conducted in consultation room with nurse.Patient states that she is very constipated. She states that she is very anxious and after a visit with he her anxiety escalated. Will start her on Atarax. Patient has been on Lexapro and Prozac in past. She is asking to increase her Zoloft dose to 50 mg. Nurses shared that her is on dialysis and he is only in his 40's which is creating a stressor. Review of Systems All other systems reviewed negative except as stated in HPI Mental Status Examination Appearance: Appropriate Consciousness: Alert Orientation: x4 Motor Activity: Normal gait Speech: Unremarkable Language: Adequate Fund of Knowledge: Adequate Attention and Concentration: Adequate Memory: Unremarkable Mood: Sad Affect: Sad Thought Process & Associations: Intact Thought Content: Appropriate Hallucination Type: None Delusion Type: None Suicidal Ideation: No Suicidal Plan: No Suicidal Intention: No Homicidal Ideation: No Homicidal Plan: No Homicidal Intention: No Insight: Fair Judgment: Impulsive Assessment and Plan - Assessment (1) Acute adjustment disorder with depressed mood Code(s): F43.21 - Adjustment disorder with depressed mood Status: Acute - Plan Plan: Patient will be reevaluated Saturday by the attending psychiatrist. Continue with current treatment plan. Justification for Continued Inpatient Stay: Moving patient to a less restrictive environment may result in her decompensation.
--- NOTE | 2018-05-25 14:20 | P.DIET ---
Nutritional Evaluation Type of nutrition evaluation: initial Nutrition screening: Weight Loss > 10 lbs Screening comments: Wt loss screen appears inappropriate, pt reports both a good appetite and recent unintentional wt loss. Nursing notes indicate pt is eating 50-100%. Pt is 167% of her ideal body weight with a BMI of 33.6. Please consult dietitian as needed.
[2018-05-25] MEDS ORDERED: Sertraline 50 MG Tablet PO ONE (21:00)
[2018-05-26 05:59] VITALS: BP 99/63; PULSE 86; RESP 16; TEMP 98.4; O2SAT 98
[2018-05-26] MEDS ORDERED: Sertraline 50 MG Tablet PO SCH (09:00)
[2018-05-26] MEDS ORDERED: Senna/Docusate Sodium 8.6/50 MG Tablet PO SCH (09:00)
--- NOTE | 2018-05-26 12:07 | P.DSPSY ---
Psychiatry Discharge Summary Inpatient Psychiatric care?: Yes Advance Directives: No Mental Health Advance Directive: No Health Care Proxy: No - Admission Admission Date: May 23, 2018 14:57 - Admission Diagnosis (1) Acute adjustment disorder with depressed mood Code(s): F43.21 - Adjustment disorder with depressed mood Brief History: The patient is a 37-year-old woman, domiciled with her and kids in [place], self-employed, with a psychiatric history of anxiety, depression, no prepsychotic hospitalizations, no previous suicidal attempts, she has failed to multiple antidepressants and anxiolytic medication in the past , she denies the use of illegal drugs, drinks alcohol occasionally, no significant medical history, who presents emergency department on a voluntary basis for psychological evaluation. Patient states that she has been overwhelmed with social issues at home. 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 She reports that she has been feeling very hopeless, helpless, worthless, with increased sensitivity to rejection and frustration, and she has contemplated suicide. She was going to slit her wrists. She denies any acts of self-harm. She denies any history of cutting in the past. 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 The patient states that she really does not want to hurt herself. She wants to get help with her depression. Patient is fully oriented x3, no attention deficit, no filtration of consciousness at the moment. The patient does not present any paranoia, agitation, aggressive behavior, ideas of reference, delusions, self-deficit behavior. PPHX: Anxiety and depression, no prepsychotic hospitalizations, she has failed to Paxil, Zoloft, Celexa PMHx: No significant medical history Family Hx: Substance HX: She does smoke electronic cigarette, drinks occasionally and marijuana occasionally. Social Hx: Patient was born and raised in [facility], she lives in [place] with her and 3 kids, she is self-employed, currently college student. Tobacco Use In Past 30 Days: Yes How Often Do You Have a Drink Containing Alcohol: 2 to 3 times a week Hospital Course: Patient was admitted to a locked, inpatient psychiatric unit. Appropriate precautions were in place throughout patient's hospital stay. Patient was seen and examined on the unit by psychiatry and also visited by counselor. Psychotropic medications were adjusted. There was no evidence of any suicidality or homicidality on the inpatient unit. There was no evidence of self-care deficit. On the day of discharge: Patient seen and examined with nurse. Chart reviewed. Patient has completed a right of release, and the 24 hour period was up this morning. I am assuming care of the patient today and was not notified of the ROR. Case discussed with nursing staff. No behavioral issues noted overnight. Case discussed with counselor. On my examination today , the patient presents as somewhat dramatic and interpersonally intense. She exhibits some mild affective lability. Her speech is somewhat rapid but interruptible. She is insisting on discharge from the inpatient unit today. She denies any suicidal or homicidal ideation, intent or plan. She says that she wants to live for her children, she says that she is in the process of adopting a son. 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 Except for the above, I can elicit no depressive or hypomanic/manic symptoms. She denies any audiovisual hallucinations and denies any command auditory hallucinations to hurt self/others. I can elicit no paranoia, no ideas of reference, no other delusional material. There is no evidence of impairment in reality construction. She denies a history of previous suicide attempts. She denies a family history of suicide. She does report that she keeps a .22 caliber handgun at home but denies ever having had a suicide plan involving a gun. She says that the presenting report of suicidal ideation in fact reflected thoughts that she was having several months ago and not any suicidal ideation prior to admission. She complains of some mild fatigue associated with initiation of Zoloft, and I have recommended that she take this medication at night to try to mitigate this side effect. No other medication side effects or physical complaints. With the patient's permission I endeavored to reach her for collateral information both at the number in the EMR and also at the number provided by the patient, ; I left generic voicemails at both numbers requesting a call back. The counselor was able to reach who reportedly verbalized no safety concerns about patient being discharged home today. Counselor did instruct to secure home environment including of firearm and other potential means of harm to self/ others. With the patient's permission, I also tried to reach her counselor, Michell Andrew at her office number and also at an alternate number [phone]. I left generic voicemails at both numbers requesting a call back. Weighing the relevant factors and based on the available evidence, I pipeliner that the patient does not meet criteria for involuntary psychiatric hospitalization at this time. There is no evidence of imminent risk of harm to self or others, nor is there evidence of self-care deficit to substantiate involuntary psychiatric hospitalization. We will bolster the patient's protective factors by referring her to an outpatient mental health prescriber, and she can also follow-up with her existing psychotherapist. I did strongly encourage the patient to remain on the inpatient psychiatric unit. Her presentation on my examination today may reflect a cluster B personality style but also may reflect hypomania or a mild mixed state or induction of such a state secondary to antidepressant treatment. I have discussed these concerns with the patient and also reviewed the significant symptomatic overlap between BPAD, borderline PD and also ADHD. We have also discussed the very different treatment of unipolar and bipolar depression and discussed the importance of remaining vigilant for signs and symptoms of induction of lucille with antidepressant therapy. The patient continues to insist on discharge from the inpatient psychiatric unit today. Having no basis to retain the patient over her objection, I will discharge her AGAINST MEDICAL ADVICE. I have recommended that the patient follow-up with outpatient mental health provider. Patient is also to follow up with primary care. I have counseled the patient regarding warning signs for need to return to the psychiatric emergency room as part of a general safety plan. - Discharge Discharge Date: 05/26/18 - Discharge Diagnosis (1) Adjustment disorder with disturbance of emotion Diagnosis: Principal Code(s): F43.29 - Adjustment disorder with other symptoms Status: Acute Discharge Disposition: AMA - Discharge Instructions Discharge Diet: Regular Diet Activities You Can Perform: Weight Bearing As Tolerat - Discharge Time > 30 minutes Mental Status Examination Appearance: Appropriate, Well dressed/well groomed Consciousness: Alert Orientation: x4 Motor Activity: Normal gait Speech: Rapid (Mild) Language: Adequate Fund of Knowledge: Adequate Attention and Concentration: Adequate Memory: Unremarkable Mood: Anxious Affect: Labile (Mild) Thought Process & Associations: Intact Thought Content: Appropriate Hallucination Type: None Delusion Type: None Suicidal Ideation: No Suicidal Plan: No Suicidal Intention: No Homicidal Ideation: No Homicidal Plan: No Homicidal Intention: No Mental Status Exam Remarks: Insight and judgment are perhaps fair at best. Discharge/Advance Care Plan - Results Vital Signs: Last Vital Signs Temp 98.4 F 05/26/18 05:57 Pulse 86 05/26/18 05:57 Resp 16 05/26/18 05:57 BP 99/63 L 05/26/18 05:57 Pulse Ox 98 05/26/18 05:57 Lab Results: Laboratory Results TSH 1.750 uIU/mL (0.358-3.740) 05/23/18 00:45 Summary of Procedures: None done. Pending Results: None - Medications Number of antipsychotic medications at discharge: 0 - Discharge Care Plan Goals to Promote Your Health: * To prevent worsening of your condition and complications * To maintain your health at the optimal level Directions to Meet Your Goals: Take your medications as prescribed Follow your dietary instruction Follow activity as directed Keep your appointments as scheduled Take your immunizations and boosters as scheduled If your symptoms worsen call your PCP, if no PCP go to Urgent Care Center or Emergency Room For 11/03 questions related to your inpatient stay or results of tests pending at discharge, please contact Dr. Gino Meneses MD at [phone] Smoking is Dangerous to Your Health. Avoid second hand smoking
== END 2018-05-26 15:25 | disposition left against medical advice (07) ==
LOC: NEPD 00:24 → NEDA 14:57 → H260 16:39
PROVIDERS: ADMIT Psychiatry & Neurology Psychiatry; ATTEND Psychiatry & Neurology Psychiatry